=== PATIENT | female | born 1995 | race Caucasian/White ===

== ENCOUNTER 2021-07-04 17:48 | Emergency (ER) | payer OTHER, SELFPAY ==
--- NOTE | ~2021-07-04 | US_ITS ---
EXAMINATION: US OB <=14 wk fetus w TV DATE: 07/04/2021 21:32 INDICATION: Pelvic pain and vaginal bleeding. TECHNIQUE: Real-time pelvic ultrasound utilizing both a transvaginal and transabdominal probe was pe rformed. The interpreting radiologist was not present for the study. COMPARISON: None. FINDINGS: The uterus measures 8.7 x 5.0 x 4.7 cm. There is an intrauterine gestational sac. A yolk sac and fet al pole are identified. The crown rump length measures 1.4 cm, which correlates with an estimated ges tational age of 7 weeks and 5 days. There is no discernible heart motion by other cine grayscal e imaging or M-mode Doppler. The left ovary is not visualized. There is a 8.1 x 7.6 x 7.2 cm complex mixed solid and cystic mass i n the right adnexal region. Portions of the solid component are very echogenic with posterior dirty s hadowing and there are numerous thin linear echogenic foci within the cystic appearing region. Appear ance is most suggestive of a fat, fluid and hair containing dermoid. What may be the adjacent right o vary measures 3.3 x 2.1 x 1.7 cm. There is no free fluid in the pelvis. IMPRESSION: 1. Single intrauterine gestational sac with 1.4 cm pole without heart motion consistent w ith demise. 2. Gestational age by ultrasound of 7 weeks 5 day(s) +/- 5 day(s) which would correspond with an ult rasound estimated date of delivery ([facility]) of 02/15/2022. 3. 8.1 cm complex solid and cystic right adnexal mass with appearance most consistent with a large de rmoid. Reviewed, dictated and finalized at location A. IMPRESSION: 1. Single intrauterine gestational sac with 1.4 cm pole without hea rt motion consistent with demise. 2. Gestational age by ultrasound of 7 weeks 5 day(s) +/- 5 day(s) which would correspond with an ultrasound estimated date of delivery ([facility]) of 02/15/2022. 3. 8.1 cm complex solid and cystic right adnexal mass with appearance most cons istent with a large dermoid.
[2021-07-04 18:24] VITALS: BP 139/65; PULSE 93; RESP 16; TEMP 37.2; O2SAT 100
[2021-07-04 18:41] LABS: Basophils Absolute Auto 0.1 K/mm3 (0.0-0.1); Basophils Percent Auto 0.4 % (0.2-1.2); Eosinophils Absolute Auto 0.2 K/mm3 (0-0.3); Eosinophils Percent Auto 1.5 % (0-4.4); Hematocrit 39.5 % (37.0-47.0); Immature Granulocyte Absolute 0.05 K/mm3 (0.00-0.031); Immature Granulocyte Percent A 0.4 % (0-0.5); Lymphocytes Absolute Auto 3.01 K/mm3 (0.9-3.2); Lymphocytes Percent Auto 24.3 % (18.3-44.2); Mean Corpuscular HGB Conc 32.9 g/dl (32-36); Mean Corpuscular Hemoglobin 28.4 pg (26-34); Mean Corpuscular Volume 86.2 fl (80-100); Mean Platelet Volume 10.1 fl (7.4-10.4); Monocytes Absolute Auto 1.3 K/mm3 (0.1-0.6); Monocytes Percent Auto 10.1 % (2.6-8.5); Neutrophils Absolute Auto 7.9 K/mm3 (1.3-6.7); Neutrophils Percent Auto 63.3 % (45.5-73.1); Platelet Count Result 315 k/mm3 (150-375); Red Blood Count 4.58 M/mm3 (4.2-5.4); White Blood Count 12.4 K/mm3 (4.5-10.0)
[2021-07-04 19:34] VITALS: BP 128/75; PULSE 95; RESP 16; O2SAT 99
--- NOTE | 2021-07-04 19:38 | ED.FEMALEGU ---
HPI - Female Genitourinary General Chief complaint: Vaginal Bleeding Stated complaint: bleeding, 12 weeks Time Seen by Provider: 07/04/21 19:24 Source: patient History of Present Illness HPI Narrative: Patient presents with vaginal bleeding and pelvic cramping. Patient is G1, P0 approximately the 12 weeks by LMP. She saw her OB a couple days ago and things were going well today she pelvic cramping and was passing blood. She reports she was scared she is having a miscarriage and came to the ER for evaluation. She denies any nausea vomiting denies any lightheadedness or dizziness denies any vaginal itching or irritation Related Data Home Medications Medication Instructions Recorded Confirmed prenat.vits,yumiko,[id number] 1 tablet PO DAILY 07/02/21 07/02/21 Allergies Allergy/AdvReac Type Severity Reaction Status Date / Time No Known Allergies Allergy Mild Unverified 07/02/21 10:07 Review of Systems Review of Systems: CONSTITUTIONAL: Denies fever, chills, or sweats. EYES: Denies visual changes, redness, or discharge. ENT: Denies rhinorrhea, congestion, sore throat, or otalgia. CARDIOVASCULAR: Denies chest pain, palpitations, or edema. RESPIRATORY: Denies cough or dyspnea. GASTROINTESTINAL: Denies nausea, vomiting, or diarrhea. GENITOURINARY: Denies dysuria or hematuria. SKIN: Denies rash or itching. MUSCULOSKELETAL: Denies back pain, joint pain, or myalgia. NEUROLOGIC: Denies headache, numbness, dizziness, or weakness. PSYCHIATRIC: Denies anxiety or depression. 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 HEAD: Normocephalic, atraumatic. EYES: PERRLA and EOMI. ENT: Nares clear, no rhinorrhea or epistaxis. Mucous membranes moist. NECK: Supple. No masses. No JVD ABDOMEN: Minimal pain with deep palpation in the lower abdomen soft, nondistended, normal active bowel sounds. EXTREMITIES: Normal range of motion. No edema. SKIN: Warm, dry, no rash. NEURO: No focal deficits. Alert and oriented x3. PSYCH: Normal mood and affect. Course Reevaluation(s) Reevaluation #1: Patient resting comfortably imaging was reviewed with patient she was appropriately upset patient is comfortable continuing outpatient management. Date: 07/05/21 Time: 00:43 Vital Signs Vital signs: Vital Signs Temperature 37.2 C 07/04/21 18:24 Pulse Rate 93 07/04/21 18:24 Respiratory Rate 16 07/04/21 18:24 Blood Pressure 139/65 07/04/21 18:24 Pulse Oximetry 100 07/04/21 18:24 Temperature 37.2 C 07/04/21 18:24 Pulse Rate 99 07/05/21 00:11 Respiratory Rate 18 07/05/21 00:11 Blood Pressure 112/67 07/05/21 00:11 Pulse Oximetry 100 07/05/21 00:11 MDM - Female Genitourinary MDM Narrative Medical decision making narrative: H&P as above, vss, pt looks clinically well, exam with lower abdominal pain, labs with elevated hCG patient blood type is a positive, img without a heart rate concerning for demise, additional labs/img considered, symptomatic relief available as needed, on reevaluation pt continues to looks clinically well. Suspect inco
[2021-07-04 20:53] VITALS: BP 110/63; PULSE 88; RESP 14; O2SAT 100
[2021-07-04 21:59] LABS: Add Urine Microscopic? YES; Appearance Urine Cloudy (Clear); Bilirubin Urine Negative (Negative); Blood Urine 3+ (Negative); Calcium Oxalate Crystals Urine Many /hpf; Color Urine Yellow (Yellow); Glucose Urine UA Negative (Negative); Ketones Urine Negative (Negative); Leukocyte Esterase Ur Negative LEU/UL (Negative); Nitrate Urine Negative (Negative); Protein Urine 1+ mg/dL (Negative); RBC Urine >75 /hpf (0-2); Specific Grav Ur 1.021 (1.001-1.035); Squamous Epithelial Cell Urine Moderate /hpf (Few); Urobilinogen Urine Negative mg/dL (<2.0); WBC Urine 0-3 /hpf
[2021-07-04 22:13] LABS: Alanine Aminotransferase 20 U/L (4-35); Albumin Level 3.8 g/dL (3.5-5.1); Alkaline Phosphatase 75 U/L (38-126); Anion Gap 7 mmol/L (8-16); Aspartate Amino Transferase 25 U/L (14-36); Bilirubin,Total 0.5 mg/dL (0.2-1.3); Blood Urea Nitrogen 11 mg/dL (7-17); Calcium 8.5 mg/dL (8.4-10.2); Carbon Dioxide 23 mmol/L (22-30); Chloride 105 mmol/L (98-107); Estimated CRCL calculation 242 ml/min; Estimated Glomerular Filt Rate > 60; Glucose 101 mg/dL (65-110); Potassium 3.4 mmol/L (3.4-5.0); Sodium 135 mmol/L (137-145)
--- NOTE | 2021-07-04 23:31 | PC.NURSE ---
heart rate was 190. Patient is tearful but very happy at this time.
[2021-07-05 00:11] VITALS: BP 112/67; PULSE 99; RESP 18; O2SAT 100
== END 2021-07-05 00:53 | disposition home or self-care (01) ==
PROVIDERS: Emergency Medicine; Emergency Provider Emergency Medicine
DX: O03.4 Incomplete spontaneous abortion without complication (principal)
CPT/HCPCS: 36415; 76801; 76817; 80053; 81001; 84702; 85025; 85461; 99284

== ENCOUNTER 2021-07-07 16:56 | Outpatient (CLI) | payer OTHER, SELFPAY ==
[2021-07-07 17:16] LABS: Basophils Absolute Auto 0.1 K/mm3 (0.0-0.1); Basophils Percent Auto 0.5 % (0.2-1.2); Eosinophils Absolute Auto 0.2 K/mm3 (0-0.3); Eosinophils Percent Auto 1.2 % (0-4.4); Hematocrit 40.7 % (37.0-47.0); Hemoglobin 13.2 g/dL (12.0-15.0); Immature Granulocyte Absolute 0.04 K/mm3 (0.00-0.031); Immature Granulocyte Percent A 0.3 % (0-0.5); Lymphocytes Absolute Auto 2.72 K/mm3 (0.9-3.2); Lymphocytes Percent Auto 21.2 % (18.3-44.2); Mean Corpuscular HGB Conc 32.4 g/dl (32-36); Mean Corpuscular Hemoglobin 28.3 pg (26-34); Mean Corpuscular Volume 87.3 fl (80-100); Monocytes Absolute Auto 1.1 K/mm3 (0.1-0.6); Monocytes Percent Auto 8.6 % (2.6-8.5); Neutrophils Absolute Auto 8.8 K/mm3 (1.3-6.7); Neutrophils Percent Auto 68.2 % (45.5-73.1); Platelet Count Result 315 k/mm3 (150-375); Red Blood Count 4.66 M/mm3 (4.2-5.4); Red Cell Distribution Width 13.2 % (11.5-14.5); White Blood Count 12.9 K/mm3 (4.5-10.0)
[2021-07-07 17:34] LABS: Hemoglobin A1C 5.3 % (<5.7)
== END 2021-07-07 16:57 | disposition home or self-care (01) ==
LOC: ANHLAB 16:58
PROVIDERS: Visit Provider Obstetrics & Gynecology
DX: O03.4 Incomplete spontaneous abortion without complication (principal); E66.01 Morbid (severe) obesity due to excess calories; Z86.39 Personal history of other endocrine, nutritional and metabolic disease
CPT/HCPCS: 36415; 83036; 84702; 85025

== ENCOUNTER 2021-07-08 14:27 | Outpatient (CLI) | payer OTHER, SELFPAY ==
--- NOTE | ~2021-07-08 | US_ITS ---
EXAMINATION: US OB <= 14 weeks fetus DATE: 07/08/2021 15:40 INDICATION: Incomplete spontaneous TECHNIQUE: Real-time pelvic transabdominal and transvaginal ultrasound was performed. COMPARISON: 07/04/2021 FINDINGS: The uterus measures 9.5 x 4.0 x 6.1 cm. There is an approximately 3.1 x 1.0 cm fluid collec tion in the endometrial canal. No visible pole is identified. The right ovary measures 3.6 x 2. 1 x 2.7 cm. The left ovary is not well visualized. There is a 10.4 x 7.4 x 8.4 cm mixed echogenicity mass of the left adnexa. There is normal vascular flow in the right ovary. There is no free fluid in the pelvis. IMPRESSION: 1. Small fluid collection in the endometrial canal without visible pole, likely retained produc ts of conception. 2. Left adnexal mass measuring up to 10.4 cm with sonographic features of the dermoid. Consider surgi yumiko evaluation. Reviewed, dictated and finalized at location A. IMPRESSION: 1. Small fluid collection in the endometrial canal without visible pole, likely retained products of conception. 2. Left adnexal mass measuring up to 10.4 cm with sonographic features of the d ermoid. Consider surgical evaluation.
== END 2021-07-08 14:28 | disposition home or self-care (01) ==
PROVIDERS: Visit Provider Obstetrics & Gynecology
DX: O03.4 Incomplete spontaneous abortion without complication (principal); Z3A.00 Weeks of gestation of pregnancy not specified; N88.9 Noninflammatory disorder of cervix uteri, unspecified
CPT/HCPCS: 76801

== ENCOUNTER 2021-07-21 10:11 | Outpatient (CLI) | payer OTHER, SELFPAY ==
--- NOTE | ~2021-07-21 | US_ITS ---
EXAMINATION: US pelvic complete w TV DATE: 07/21/2021 10:40 INDICATION: Incomplete spontaneous without complication. TECHNIQUE: Multiple transabdominal and transvaginal sonographic images of the pelvis were obtained. COMPARISON: Ultrasound 07/08/2021, 07/04/2021 FINDINGS: TRANSABDOMINAL ULTRASOUND: The uterus measures 7.5 x 3.4 x 5.9 cm. There is no free fluid in the pelvis. TRANSVAGINAL ULTRASOUND: The endometrial complex measures 11 mm in thickness. There is no vascular flow in the endometrial com plex. There is a 7.5 x 3.4 x 5.9 cm mass of heterogeneous echogenicity in the right adnexa. The left ovary is not visualized. IMPRESSION: 1. Endometrial complex thickness of 11 mm, which is indeterminate for retained products of conception . 2. 7.5 cm mass in the right adnexa, most likely a dermoid. Reviewed, dictated and finalized at location B. IMPRESSION: 1. Endometrial complex thickness of 11 mm, which is indeterminate for retained products of conception. 2. 7.5 cm mass in the right adnexa, most likely a dermoid.
== END 2021-07-21 10:12 ==
LOC: MICIMG 10:12
PROVIDERS: PCP Obstetrics & Gynecology; Visit Provider Obstetrics & Gynecology
DX: O03.4 Incomplete spontaneous abortion without complication (principal); R19.00 Intra-abdominal and pelvic swelling, mass and lump, unspecified site
CPT/HCPCS: 76830; 76856

== ENCOUNTER 2021-08-12 10:48 | Outpatient (CLI) | payer OTHER, SELFPAY ==
[2021-08-12 11:49] LABS: Beta HCG Quantitative < 2.39 mIU/ML
== END 2021-08-12 10:49 | disposition home or self-care (01) ==
LOC: ANHLAB 10:50
PROVIDERS: Visit Provider Obstetrics & Gynecology
DX: O03.4 Incomplete spontaneous abortion without complication (principal)
CPT/HCPCS: 36415; 84702

== ENCOUNTER 2021-09-15 00:52 | Day surgery (SDC) | payer OTHER, SELFPAY ==
--- NOTE | 2021-09-09 13:22 | PC.NURSE ---
Report to the Outpatient Waiting Room, entrance under the green pavilion located off [facility], at 0600 on 09-15-21. OR Time: 0730. - You and your visitor will be asked a series of questions to screen for COVID 19 for your protection. - Only one visitor is allowed at this time. - The patient visitor is requested to leave or wait in car when not with patient. - A mask is required within the hospital. Patients may have clear liquids (water, carbonated beverages, clear teas, apple juice) until 3 hours prior to surgery with a maximum of 20 ounces. 0430 - No food from midnight until time of surgery - Infants may have breast milk until 4 hours before surgery, infant formula 6 hours prior to surgery. - Children will be allowed to drink immediately following surgery. If applicable, please bring a bottle or sippy cup to assist with drinking. Juice, water, soda, and popsicles are readily available. For infants on formula, please bring formula the day of surgery. Pacifiers are allowed. Take the following medications with a SIP of water the morning of surgery: None Medications to discontinue per physician: Vitamins and supplements Date to take last dose: 09-12-21 Please no make-up, nail moroccan, hairspray, perfume, deodorant, or body powder the day of surgery. No jewelry (including any body piercings) or valuables the day of surgery, leave them at home. Please take a shower or bath the night before, or the morning of, surgery with an antibacterial soap. Wear comfortable, loose fitting clothing. Children are encouraged to wear pajamas. - Jewelry must be removed prior to entering the operating room. Rings and piercings that are not removed may be cut off. - The hospital will not accept responsibility for valuables. - Please leave all valuables, including medications, at home the day of surgery. If you are going home after surgery, a licensed front loader residential driver must drive you home. - NO public transportation without another adult. - We recommend that an adult stay with you for 24 hours following discharge. - We also recommend that you do not drive, make important decision, drink alcoholic beverages, or take any drugs that were not prescribed by your health care provider for at least 24 hours after your discharge time. For Pediatric surgeries, we recommend two adults accompany the child home (only one inside the building at this time). Follow any additional instructions given to you from your surgeon. If you or anyone in your household have experienced Covid symptoms in the past week, please notify your surgeon or the nurse liaison at the phone number below for possible testing. Telephone instructions given to Jennie Bee and asked if any additional questions and then verbalized understanding. Patient advised to call surgeon office or pre surgery nurse liaison [phone] if any additional questions.
--- NOTE | 2021-09-14 20:52 | PM.IMHP ---
H&P: HPI History of Present Illness Date/Time: 09/14/21 20:52 Chief Complaint: ovarian cyst Narrative: Jennie is a 26yo P0010 who presents for surgery due to a large ovarian cyst. She recently had a miscarriage and when US was performed, was incidentally found to have a large right sided dermoid cyst. She did continue to bleed for 3wks after the miscarriage; but has not had any further bleeding and beta did verify complete . She denies any pelvic pain; ready to proceed with surgery for her right dermoid ovarian cyst (~8cm). 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 identity (if verbalized by the patient): Female Sexual Orientation (if Verbalized by the Patient): Straight or Heterosexual Spiritual care concerns: No Meds Home Medications and Allergies Home Medications Medication Instructions Recorded Confirmed Type multivit with minerals-iron 18 1 tablet PO DAILY 09/09/21 09/09/21 History mg-folic ac 400 mcg-vit K 25 mcg tablet (Adults Multivitamin) Allergies Allergy/AdvReac Type Severity Reaction Status Date / Time No Known Allergies Allergy Mild Verified 09/09/21 12:57 Exam Const: General: cooperative, comfortable and no acute distress Nutritional Appearance: obese morbidly obese Orientation/consciousness: patient oriented x3 Resp: Effort & Inspection: normal respiratory effort Cardio: Rate: regular rate GI: Inspection: normal to inspection GI Palp: No abdominal tenderness and Yes Soft to palpation Skin: General skin exam: normal color Extrem: General: normal to inspection Psych: Appearance: grossly normal Affect: normal affect Attitude: cooperative Assessment and Plan Assessment and plan (1) Dermoid cyst: Code(s): D36.9 - Benign neoplasm, unspecified site Status: Acute Assessment and Plan: - Right ovarian cyst measuring ~8cm - Proceed with robotic assisted right ovarian cystectomy - Risks and benefits discussed in detail including the possible small risk of oophorectomy
[2021-09-15] VITALS (7 sets, daily range): BP systolic 103–140; BP diastolic 59–69; PULSE 68–98; RESP 15–20; TEMP 36.5–37.1; O2SAT 100; BMI 59.8
--- NOTE | 2021-09-15 07:02 | WPDHPUPDATE1 ---
History and Physical Update Update Date/Time: 09/15/21 07:02 History and Physical has been reviewed, including an updated exam of the patient. There are NO changes in the patient's condition. Risks, benefits, and alternatives have been discussed and questions answered. Patient agrees to proceed with procedure.
--- NOTE | 2021-09-15 07:05 | WPDANESEPPF ---
Anes - Initial Pre Proc Eval Procedure: Operation Date: 09/15/21 07:30 Proposed Procedures p Robotic Assisted Laparoscopic Right Ovarian Cystectomy - Sugar Padilla MD Date/Time: 09/15/21 07:05 Surgeon: Sugar Padilla MD Pre Op Diagnosis: right dermoid cyst Patient Data Age: 26 Gender: F Height: Weight: Allergies Allergy/AdvReac Type Severity Reaction Status Date / Time No Known Allergies Allergy Mild Verified 09/15/21 06:51 Home Medications Medication Instructions Recorded Confirmed Type multivit with minerals-iron 18 1 tablet PO DAILY 09/09/21 09/15/21 History mg-folic ac 400 mcg-vit K 25 mcg tablet (Adults Multivitamin) Patient hx anesthesia problems: none Family hx anesthesia problems: none Results Review: All pre-operative results and documents have been reviewed as part of the pre-operative evaluation. 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 Informed Consent: The patient's anesthetic plan and its attendant risks and benefits were discussed with the patient/family/POA. Questions were solicited and answers provided to the satisfaction of the patient/family/POA.
[2021-09-15] MEDS: ACETAMINOPHEN 500 MG TABLET 1000 MG PO (07:13)
[2021-09-15] MEDS: LACTATED RINGERS 1,000 ML 30 ML IV CONT ×2 (07:20→10:00)
[2021-09-15] MEDS: KETOROLAC 15 MG/ML VIAL (*BKC) IV PUSH (07:26)
[2021-09-15] MEDS: LIDOCAINE/EPINEPHRINE 0.5%/1:200,000 50 ML VIAL 30 ML INFILTRATE (08:52)
--- NOTE | 2021-09-15 09:52 | W.PM.PROC2 ---
Procedure Note - Detailed Date of Procedure 09/15/21 Pre-op Diagnosis right dermoid cyst Post-op Diagnosis Other (Left dermoid cyst) Procedure Performed Robotic assisted left ovarian cystectomy Surgeon Sugar Padilla MD Flight Operations Dispatch Clerk Lencho Anesthesia General Indications Jennie is a 26yo P0010 who presented to the ER with a miscarriage and US incidentally also found an 8cm dermoid ovarian cyst. She was counseled on the need for removal due to it's size. Findings Large ovarian cyst (dermoid) noted to be arising from the left ovary. Normal right ovary, tube and uterus. Cyst accidentally ruptured intra-op where hair and sebaceous fluid noted; diagnosing a dermoid. Good hemostasis at end of case. Description of Procedure Jennie was taken to the operating room where she was placed under general endotracheal anesthesia without complications. She was then prepped and draped in the usual sterile fashion in the dorsal lithotomy position with her arms tucked at her side her legs in low José Miguel stirrups. A tilt test was performed prior to prepping and verified she could handle 22? of Trendelenburg and still be ventilated. A time-out was performed and no preoperative antibiotics were indicated. A bivalve speculum was placed within the vagina where the cervix was easily identified. The anterior lip of the cervix was grasped with a single-tooth tenaculum. The cervix was then serially dilated to allow for the uterine manipulator. A ZUMI diagnostic uterine manipulator was placed without complications as well as a Tarango catheter under aseptic technique. My gloves were changed and my attention was turned the abdomen. A supraumbilical incision was made and a long 5 mm trocar was placed under direct visualization without complication. Once intra-abdominal placement was confirmed the abdomen was insufflated with carbon dioxide gas. Two additional ports were placed on each side, to total 5 ports. The 5 mm trocar was then upsized to the long DaVinci camera port. The patient was placed in 22? of Trendelenburg and the robot was docked without complications. On abdominal survey it was noted that the large cyst was actually arising from the left ovary, not the right. I had discussed this with the patient that this may be the finding but we would proceed with removal of the cyst. Using the Pro grasp the left ovary was elevated. The cyst was scored using the monopolar scissors and using traction counter traction the cyst wall was starting to be removed from the ovary. Little bleeders were noted and were cauterized. Shortly after that cyst contents were noted to be leaking from the cyst as there was a small hole in the cyst wall. Using suction most of the cyst contents were suctioned out of the cyst before entering into the abdomen, at this point we noticed hair and determined it was a dermoid cyst. Using traction counter traction the cyst was slowly peeled off of the ovarian wall and small bleeders were cauterized. The cyst was more adhered at the base, therefore I used monopolar cautery to cut the cyst from the ovary. The cyst was examined and noted to be removed in whole. The cyst was placed in the anterior cul-de-sac while the ovary was then irrigated and small bleeders were cauterized; paying close attention not to over cauterize as she does desire future fertility. A 10 mm bag was then placed within the abdomen and the cyst was placed within the bag. The pelvis was thoroughly irrigated and suctioned free of all debris. At the end, the fluid was noted to be clear without any cyst contents or debris. The ovary was once again examined and found to be hemostatic. The right ovary and uterus were also found to be normal. All instruments were removed from the abdomen. The robot was undocked. The bag was brought up through the supraumbilical port. The incision was extended superiorly and inferiorly. The bag was brought up to the skin incision and grasped with 2 Dilcia clamps. The
[2021-09-15] MEDS: oxyCODONE HCL (*CRX) 5 MG TAB IR PO (11:07)
== END 2021-09-15 12:15 | disposition home or self-care (01) ==
PROVIDERS: Visit Provider Obstetrics & Gynecology
PROC: 8E0W4CZ Robotic Assisted Procedure of Trunk Region, Percutaneous Endoscopic Approach (ICD-10-PCS; CPT 49320; principal; 2021-09-15 07:30)
DX: D27.1 Benign neoplasm of left ovary (principal)
CPT/HCPCS: 58662; 36415; 86850; 86900; 86901; 88305; A9270; J0330; J1100; J1170; J1885; J2250; J2405; J2704; J2710; J3010; J7030; J7120

== ENCOUNTER 2022-08-20 17:42 | Emergency (ER) | payer OTHER, SELFPAY ==
--- NOTE | 2022-08-20 17:45 | ED.DENTAL ---
HPI - Dental/Oral General Chief complaint: Dental/Oral Stated complaint: Dental Pain Time Seen by Provider: 08/20/22 17:45 Source: patient Mode of arrival: ambulatory Limitations: no limitations History of Present Illness HPI Narrative: Patient is a 27-year-old female who presents with left bottom wisdom tooth pain. Patient has temporary crown on to due to nerve being exposed and states every time she bites it sends shooting pain into the ear. Patient reports pain is worsened since last night. Has not been able to eat due to pain. Has taken ibuprofen with only mild relief. Does not have dentist at this time. Reports subjective fever but did not take temperature. Denies any bitter taste in mouth or difficulty swallowing Related Data Allergies Allergy/AdvReac Type Severity Reaction Status Date / Time No Known Allergies Allergy Mild Verified 08/20/22 17:44 Review of Systems Review of Systems: All systems reviewed & are unremarkable except as noted in HPI and below Constitutional: Constitutional: Denies body ache(s), Denies fever(s), Denies headache(s), Denies malaise and Denies weakness Eyes: Eyes: Denies loss of vision ENT: Denies otalgia, Reports facial pain (jaw), Denies headache(s), Denies nasal discharge, Denies sinus pain and Denies sore throat Cardiovascular: Cardiovascular: Denies chest pain, Denies irregular heart rhythm and Denies dyspnea Respiratory: Respiratory: Denies dyspnea Gastrointestinal: Gastrointestinal: Denies abdominal pain, Denies melena, Denies hematochezia, Denies diarrhea, Denies nausea and Denies vomiting Musculoskeletal: Musculoskeletal: Denies back pain, Denies myalgias and Denies arthralgias Integumentary/Breasts: Skin/Breast: Denies pruritus and Denies rash Neurologic: Denies headache(s), Denies loss of vision and Denies weakness Psychiatric: Psychiatric: Reports no additional psychiatric complaints PMF Past Medical History Medical History Irregular periods Suppression of menses Surgical History Surgical History History of tonsillectomy Family History Family History Grandparent Diabetes mellitus Social History Social History Smoking status: Never smoker Second hand tobacco smoke exposure: No Alcohol intake: current Alcohol use details: socially Substance use: current Substance use type: marijuana Living arrangements: with family Occupation/Education: occupation 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 There is no relevant family history pertinent to the presenting complaint. Exam Const: General: cooperative, healthy appearing, comfortable, no acute distress and well nourished Nutritional Appearance: well nourished Orientation/consciousness: patient oriented x3 Limitations: no limitations HENMT: Head: normal to inspection, normocephalic and atraumatic Ears: hearing grossly normal bilaterally, external ears normal, TM's normal bilaterally and mastoids normal bilaterally Face/Nose/Sinus: Normal external nose present, normal facial exam and face symmetric Face and sinus: normal facial exam and face symmetric Mouth: Yes Normal oral and palatal mucosa present, Yes lip normal, Yes tongue normal, Yes Normal salivary glands and ducts present and Yes moist mucous membranes Teeth and gingiva: caries and fair dentition Teeth image: 1. Temporary crown. Surrounding gum inflamed. No drainage noted or obvious break in tooth Throat: posterior oropharynx normal, tons
[2022-08-20 17:54] VITALS: BP 125/71; PULSE 102; RESP 16; TEMP 36.4; O2SAT 100
[2022-08-20] MEDS: ONDANSETRON HCL ODT 4 MG TABLET SUBLINGUAL (18:24)
[2022-08-20] MEDS: KETOROLAC (*BKC) 60 MG/2 ML VIAL IM (18:24)
== END 2022-08-20 18:40 | disposition home or self-care (01) ==
PROVIDERS: Emergency Provider Nurse Practitioner Family; PCP Registered Nurse
DX: K04.7 Periapical abscess without sinus (principal); F12.90 Cannabis use, unspecified, uncomplicated
CPT/HCPCS: 96372; 99213; A9270; G0463; J1885

== ENCOUNTER 2024-09-25 16:52 | Emergency (ER) | payer OTHER, SELFPAY ==
--- NOTE | 2024-09-25 16:59 | ED_ITS ---
HPI - URI/Sore Throat General Chief Complaint: Upper Respiratory Infection Stated Complaint: Dizziness/Flu Symptoms Time Seen by Provider: 09/25/24 17:04 Source: patient Mode of arrival: ambulatory Limitations: no limitations History of Present Illness HPI Narrative: Jennie is a 29-year-old female patient presenting to the clinic today with complaints of dizziness, cough, nasal/sinus congestion, feeling feverish, chills, and diarrhea x4 days. Initially had sore throat that resolved. Has not been able to check her temperature. 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 Cough feels productive but she is not able to get anything out. No one else is sick around her. Took a tincture tea yesterday to try to break up the phlegm. Stated right ear started draining today. Related Data Home Medications ?Medication ?Instructions ?Recorded ?Confirmed ?Last Taken ?Type No Home Medications 09/25/24 09/25/24 Unknown History Allergies Allergy/AdvReac Type Severity Reaction Status Date / Time No Known Allergies Allergy Mild Verified 09/25/24 17:09 Review of Systems Review of Systems: Pertinent positives per HPI. Patient denies any fever, chills, rash, headache, visual changes, dizziness, cough, shortness of breath, chest pain, palpitations, nausea, vomiting, diarrhea, constipation, abdominal pain, or any urinary issues. 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 There is no relevant family history pertinent to the patient complaint. Exam Narrative: General: Well-developed, morbidly obese, in no apparent distress Head: Normocephalic, atraumatic Eyes: Pupils equally round and reactive to light bilaterally, EOM intact, sclera and conjunctive clear, no discharge, lids normal Ears: Left TM intact and clear, Right TM intact, bulging, fluid noted behind the TM, ear canals clear, no drainage, grossly hearing normal. Nose: Nares patent, clear nasal discharge, no inflammation, no sinus tenderness. Mouth: Oral pharynx red without lesions or masses, good dentition, MMM. PMD Neck: Supple, trachea midline, no enlargement of anterior or posterior cervical nodes, no thyroid masses or goiter palpable. Cardio: Regular rate and rhythm, s1 and s2 normal, no murmur appreciated. Resp: Clear to auscultation bilaterally, no rhonchi, rales, wheezing or rubs Course Course Emergency Course: Portions of this record may have been created with voice recognition software. Level of Care: Express Care Visit Vital Signs Vital signs: Vital Signs Temperature 37.3 C 09/25/24 17:08 Pulse Rate 89 09/25/24 17:08 Respiratory Rate 16 09/25/24 17:08 Blood Pressure 142/81 H 09/25/24 17:08 Pulse Oximetry 97 09/25/24 17:08 Oxygen Delivery Room Air 09/25/24 17:08 Temperature 37.3 C 09/25/24 17:08 Pulse Rate 89 09/25/24 17:08 Respiratory Rate 16 09/25/24 17:08 Blood Pressure 142/81 H 09/25/24 17:08 Pulse Oximetry 97 09/25/24 17:08 Oxygen Delivery Room Air 09/25/24 17:08 Vital signs reviewed MDM - URI/Sore Throat MDM Narrative Medical decision making narrative: At the time of visit patient is resting comfortably on the exam table. Patient appears to be nontoxic. Patient is reporting feeling feverish, dizziness, cough, congestion, right ear pain, and some diarrhea. Has not checked her temperature as she does not have a thermometer. Has not taken any medications for her symptoms other than a homemade tincture tea. Denies any chest pain or shortness of breath. Patient reporting that the dizziness has improved. Labs: COVID and influenza testing was negative in the clinic today. Plan: I suspect patient has URI/serous otitis/dizziness. Prescription for prednisone was sent to the pharmacy to help alleviate congestion and dry up the serous otitis. No sign of bacterial infection in the clinic today. Work note was given. Supportive measures were discussed with the patient and they voiced understanding discharge instructions and agrees to treatment plan. Return precautions reviewed Differential Diagnosis Differential diagnosis: Likely upper respiratory infection, otitis media, sinusitis, viral infection, bronchitis, influenza, pharyngitis and other (COVID) Lab Data Labs: Lab Results 09/25/24 Range/Units 17:02 POC Influenza A Ag Negative (Negative) POC Influenza B Ag Negative (Negative) POC SARS CoV-2 Ag Negative (Negative) Discharge Plan Discharge Clinical Impression: Upper respiratory infection, Acute serous otitis media, Dizziness Patient Disposition: Home Condition: Stable Instructions: Antibiotic Form, Upper Respiratory Infection (ED), Dizziness (ED), Fluid In The Ear (Serous Otitis Media) (ED) Additional Instructions: COVID and influenza testing was negative in the clinic today. Take prescription medications only as prescribed-prednisone Increase fluids and stay well hydrated Tylenol/motrin for pain/fever Flonase and OTC antihistamines such as Zyrtec or Claritin as directed Vicks vapor rub to open sinuses Sinus rinses for congestion Cepacol spray, cough drops, throat lozenges, warm tea with honey/lemon, gargle salt water to soothe throat BRAT diet for diarrhea Clear liquids x 24 hours then advance as tolerated for nausea/vomiting Go to the ED if you develop a worsening in your condition- high fever not controlled by Tylenol or Motrin, dehydration, weakness, lethargy, shortness of breath, or chest pain. Follow up with your PCP in 3-5 days if symptoms persist. Patient Language: French Prescriptions: No Action No Home Medications Follow-up/Referrals: PHYSICIAN,SALES PROMOTION DIRECTOR [Primary Care Provider] - Stand Alone Forms: Work/School Release IP Time of Disposition: 17:36 Quality NIHSS Nursing Documentation ED NIHSS nursing documentation: reviewed/agree
[2024-09-25 17:08] VITALS: BP 142/81; PULSE 89; RESP 16; TEMP 37.3; O2SAT 97
[2024-09-25 17:37] LABS: EDCOVIDSCREEN Negative (Negative); EDINFLUASCREEN Negative (Negative); EDINFLUBSCREEN Negative (Negative)
== END 2024-09-25 17:41 | disposition home or self-care (01) ==
PROVIDERS: Emergency Provider Nurse Practitioner Family
DX: J06.9 Acute upper respiratory infection, unspecified (principal); H65.01 Acute serous otitis media, right ear; R42 Dizziness and giddiness; Z20.822 Contact with and (suspected) exposure to COVID-19
CPT/HCPCS: 87426; 87804; 99212; G0463

== ENCOUNTER 2024-10-07 13:31 | Emergency (ER) | payer OTHER, SELFPAY ==
--- NOTE | 2024-10-07 13:37 | ED.GENADULT ---
HPI - General Adult General Chief complaint: Nausea/Vomiting/Diarrhea Stated complaint: Dizziness/Vomiting Time Seen by Provider: 10/07/24 13:37 Source: patient Mode of arrival: ambulatory Limitations: no limitations History of Present Illness HPI narrative: 29-year-old female patient presents to the [facility] with complaints of right ear pain, dizziness and vomiting. Patient states she was seen here a couple weeks ago was diagnosed with URI was not given any medications. Patient states she was told that she has some behind the right ear but was never instructed to take antihistamines or Flonase for the fluid. Patient states that most of her symptoms have resolved but she continues to have right ear pain, and some dizziness. Patient states the dizziness has caused her to vomit at times. Denies fevers body aches or chills. Denies chest pain or shortness of breath. Denies abdominal pain or diarrhea. Patient states she has been taking some scnl-rgw-dhkjccq ear drops to help with her ear pain and his only minimally helped. Related Data Allergies Allergy/AdvReac Type Severity Reaction Status Date / Time No Known Allergies Allergy Mild Verified 10/07/24 14:04 Review of Systems Review of Systems: CONSTITUTIONAL: Denies fever, chills, or sweats. EYES: Denies visual changes, redness, or discharge. ENT: Positive rhinorrhea, congestion, denies sore throat, positive right otalgia. CARDIOVASCULAR: Denies chest pain, palpitations, or edema. RESPIRATORY: Denies cough or dyspnea. GASTROINTESTINAL: Denies abdominal pain, nausea, positive vomiting, denies diarrhea. GENITOURINARY: Denies dysuria or hematuria. SKIN: Denies rash or itching. MUSCULOSKELETAL: Denies back pain, joint pain, or myalgia. NEUROLOGIC: Denies headache, numbness, or weakness. Positive dizziness PSYCHIATRIC: Denies anxiety or depression. 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 There is no relevant family history pertinent to the presenting complaint. Exam Narrative: GENERAL: Well-appearing, well-nourished, and in no acute distress. HEAD: Normocephalic, atraumatic. EYES: PERRLA and EOMI. ENT: Nares clear, no rhinorrhea or epistaxis. Mucous membranes moist. Posterior pharynx with no erythema, tonsillar enlargement, exudates or lesions present. The right TM does have some erythema and pus noted behind the tympanic membrane. There is also some swelling and discharge noted in the canal of the right ear. The left ear does not show any fluid or erythema but it does appear to have something blew near the tympanic membrane most likely an old to that has been scarred over. NECK: Supple. No lymphadenopathy CHEST: Clear to auscultation. No respiratory distress. HEART: Regular rate and rhythm. No murmur heard. Normal peripheral pulses. ABDOMEN: Soft, nontender, nondistended, normal active bowel sounds. EXTREMITIES: Normal range of motion. No edema. SKIN: Warm, dry, no rash. NEURO: No focal deficits. Alert and oriented x3. Course Course Level of Care: Express Care Visit Vital Signs Vital signs: Vital Signs Temperature 36.8 C 10/07/24 13:49 Pulse Rate 81 10/07/24 13:49 Respiratory Rate 20 10/07/24 13:49 Blood Pressure 137/74 10/07/24 13:49 Pulse Oximetry 100 10/07/24 13:49 Oxygen Delivery Room Air 10/07/24 13:49 Temperature 36.8 C 10/07/24 13:49 Pulse Rate 81 10/07/24 13:49 Respiratory Rate 20 10/07/24 13:49 Blood Pressure 137/74 10/07/24 13:49 Pulse Oximetry 100 10/07/24 13:49 Oxygen Delivery Room Air 10/07/24 13:49 Vital signs reviewed. Medical Decision Making MDM Narrative Medical decision making narrative: Discussed with patient that we will discharge her home with some oral antibiotics, as well as an ear drop antibiotic. Discussed with her she also needs to get a wmme-lfi-nqocgkc antihistamine something such as Zyrtec, Claritin or Hyacinth as well as Flonase to help decrease the fluid behind her ear. Discussed with patient that if the antibiotic resolve the infection but she continues to have dizziness she needs to be seen by her primary doctor be seen in the ER for further evaluation. Differential Diagnosis Differential Diagnosis: Differential diagnosis: Otitis media, otitis externa, perforated TM, infection of the outer ear, foreign body or cerumen impaction, ruptured TM, acute mastoiditis, ligament otitis externa, dehydration, pneumonia, sepsis, dental or intraoral infection, TMJ dysfunction Vital Signs Vital Signs: Vital Signs Temperature 36.8 C 10/07/24 13:49 Pulse Rate 81 10/07/24 13:49 Respiratory Rate 20 10/07/24 13:49 Blood Pressure 137/74 10/07/24 13:49 Pulse Oximetry 100 10/07/24 13:49 Oxygen Delivery Room Air 10/07/24 13:49 Temperature 36.8 C 10/07/24 13:49 Pulse Rate 81 10/07/24 13:49 Respiratory Rate 20 10/07/24 13:49 Blood Pressure 137/74 10/07/24 13:49 Pulse Oximetry 100 10/07/24 13:49 Oxygen Delivery Room Air 10/07/24 13:49 Critical Care Time Critical Care Time Critical Care Time: No Discharge Plan Discharge Clinical Impression: Acute right otitis media, Acute otitis externa of right ear Patient Disposition: Home Condition: Stable Instructions: Antibiotic Form, Ear Infection (ED) Additional Instructions: An ear infection is also called otitis media. An ear infection may be caused by blocked or swollen eustachian tubes. Eustachian tubes connect the middle ear to the back of the nose and throat. They drain fluid from the middle ear. With an ear infection, fluid builds up and is infected by germs. The germs grow easily in fluid trapped behind the eardrum. DISCHARGE INSTRUCTIONS: Call 911 or have someone call 911 for the following: You have a seizure. Return to the emergency department if: You have a fever and a stiff neck. Contact your healthcare provider if: Your ear pain gets worse or does not go away, even after treatment. The outside of your ear is red or swollen. You are vomiting or have diarrhea. You have fluid coming from your ear. You have questions or concerns about your condition or care. Medicines: Acetaminophen decreases pain and fever. It is available without a doctor's order. Ask how much to take and how often to take it. Follow directions. Read the labels of all other medicines you are using to see if they also contain acetaminophen, or ask your doctor or pharmacist. Acetaminophen can cause liver damage if not taken correctly. Do not use more than 4 grams (4,000 milligrams) total of acetaminophen in one day. NSAIDs , such as ibuprofen, help decrease swelling, pain, and fever. This medicine is available with or without a doctor's order. NSAIDs can cause stomach bleeding or kidney problems in certain people. If you take blood thinner medicine, always ask your healthcare provider if NSAIDs are safe for you. Always read the medicine label and follow directions. Please use a daily antihistamine something such as Zyrtec, Claritin and Hyacinth as well as huzl-lmi-ewncqve Flonase to help with the fluid behind the ear. For the Flonase to 2 sprays in the morning and 2 sprays in the evening until symptoms have resolved. Antibiotics help treat a bacterial infection that caused your ear infection. Take your medicine as directed. Contact your healthcare provider if you think your medicine is not helping or if you have side effects. Tell him or her if you are allergic to any medicine. Keep a list of the medicines, vitamins, and herbs you take. Include the amounts, and when and why you take them. Bring the list or the pill bottles to follow-up visits. Carry your medicine list with you in case of an emergency. Prevent an ear infection: Wash your hands often. Use soap and water. Wash your hands after you use the bathroom, change a child's diapers, or sneeze. Wash your hands before you prepare or eat food. Handwashing Stay away from people who are ill. Some germs are easily and quickly spread through contact. Patient Language: [place] Prescriptions: New amoxicillin-pot clavulanate 875-125 mg tablet 1 tablet PO Q12H 7 Days Qty: 14 0RF ofloxacin 0.3 % drops 10 drp RIGHT EAR DAILY 7 Days Qty: 10 0RF Follow-up/Referrals: PHYSICIAN,PAID SEARCH MARKETING STRATEGIST [Primary Care Provider] - Time of Disposition: 14:07
[2024-10-07 13:49] VITALS: BP 137/74; PULSE 81; RESP 20; TEMP 36.8; O2SAT 100
== END 2024-10-07 14:20 | disposition home or self-care (01) ==
PROVIDERS: Emergency Provider Nurse Practitioner Family
DX: H66.91 Otitis media, unspecified, right ear (principal); H60.91 Unspecified otitis externa, right ear
CPT/HCPCS: 99213; G0463

== ENCOUNTER 2025-01-21 16:52 | Emergency (ER) | payer OTHER, SELFPAY ==
[2025-01-21 17:00] VITALS: BP 132/55; PULSE 79; RESP 16; TEMP 36.8; O2SAT 100
--- NOTE | 2025-01-21 17:26 | ED_ITS ---
HPI - URI/Sore Throat General Chief Complaint: Upper Respiratory Infection Stated Complaint: Congestions, nauseous, fevers patient presents to the [facility] with complaints of nasal congestion, sinus pain, headaches, fatigue, sore throat, cough that began about 8 days ago. Patient reports intermittently feeling slightly better but then symptoms will start up again. Patient noted symptoms much worse today. Has been using some zxal-zgz-zoegbcb sinus medication with temporary relief of symptoms. No specific known sick contacts. Denies shortness of breath, dizziness, ear pain, difficulty swallowing, nausea, vomiting, diarrhea. Related Data Allergies Allergy/AdvReac Type Severity Reaction Status Date / Time No Known Allergies Allergy Mild Verified 01/21/25 17:21 Review of Systems Constitutional: Constitutional: Reports as per HPI, Reports chills, Reports fatigue, Denies fever(s) and Denies weakness Eyes: Eyes: Reports no additional eye complaints ENT: Reports as per HPI, Denies vertigo, Denies dizziness, Reports nasal congestion and Reports sore throat Comments: Sinus pain, nasal drainage Cardiovascular: Cardiovascular: Reports no additional cardiovascular complaints Respiratory: Respiratory: Reports as per HPI, Reports chest congestion, Reports cough, Denies dyspnea and Denies wheezing Gastrointestinal: Gastrointestinal: Reports as per HPI, Denies abdominal pain, Denies diarrhea, Reports nausea and Denies vomiting Genitourinary: Genitourinary: Reports no additional female genitourinary complaints Musculoskeletal: Musculoskeletal: Reports as per HPI, Denies back pain and Denies myalgias Integumentary/Breasts: Skin/Breast: Reports as per HPI, Denies pruritus, Denies erythema and Denies rash Neurologic: Denies vertigo, Denies dizziness, Reports headache(s) and Denies weakness Psychiatric: Psychiatric: Reports no additional psychiatric complaints Endocrine: Endocrine: Reports no additional endocrine complaints Hematologic/Lymphatic: Hematologic/Lymphatic: Reports no additional hematologic/lymphatic complaints Allergic/Immunologic: Allergic/Immunologic: Reports no additional allergic/immunologic complaints [facility] Past Medical History Medical History Irregular periods Suppression of menses Surgical History Surgical History History of tonsillectomy Family History Family History Grandparent Diabetes mellitus Social History Social History Smoking status: Never smoker Second hand tobacco smoke exposure: No Alcohol intake: current Alcohol use details: socially Substance use: current Substance use type: marijuana Living arrangements: with family Occupation/Education: occupation 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 Gender identity (if verbalized by the patient): Female Sexual Orientation (if Verbalized by the Patient): Straight or Heterosexual Spiritual care concerns: No Exam Const: General: healthy appearing and no acute distress Nutritional Appearance: well nourished Orientation/consciousness: patient oriented x3 Limitations: no limitations HENMT: Head: normal to inspection Ears: external ears normal and TM's normal bilaterally Face/Nose/Sinus: Normal external nose present, nares abnormal ( moderate erythema and edema) and Nasal discharge present Face and sinus: normal facial exam and sinus tenderness maxillary Mouth: Yes Normal oral and palatal mucosa present, Yes lip normal and Yes moist mucous membranes Throat: posterior oropharynx abnormal ( moderate erythema and edema noted no exudate) and uvula midline Neck: Neck: normal visual inspection and no lymphadenopathy Resp: Effort & Inspection: normal respiratory effort Auscultation: clear to auscultation bilaterally Cardio: Rate: regular rate Rhythm: regular rhythm Skin: General skin exam: normal color Rashes: no rashes Wounds: no wounds Neuro: General: patient oriented x3 Speech: normal speech Gait exam (Neuro): Normal gait present Psych: Mental Status: mental status grossly normal Affect: normal affect Attitude: cooperative Course Course Level of Care: Express Care Visit Vital Signs Vital signs: Vital Signs Temperature 98.2 F 01/21/25 17:00 Pulse Rate 79 01/21/25 17:00 Respiratory Rate 16 01/21/25 17:00 Blood Pressure 132/55 L 01/21/25 17:00 Pulse Oximetry 100 01/21/25 17:00 Oxygen Delivery Room Air 01/21/25 17:00 Temperature 98.2 F 01/21/25 17:00 Pulse Rate 79 01/21/25 17:00 Respiratory Rate 16 01/21/25 17:00 Blood Pressure 132/55 L 01/21/25 17:00 Pulse Oximetry 100 01/21/25 17:00 Oxygen Delivery Room Air 01/21/25 17:00 MDM - URI/Sore Throat MDM Narrative Medical decision making narrative: The patient was evaluated by myself in the [facility] care. History is obtained from patient who is an independent historian and physical exam was performed. Available medical records were reviewed at this time. Exam findings show no acute concerns or changes; patient is non-toxic appearing and is in no distress. Patient is appropriate for outpatient treatment and follow-up. I have evaluated and discussed social determinants of health with the patient that could potentially impact subsequent diagnosis and treatment plans. Differential diagnosis and treatment plan were discussed with the patient. Patient agrees with discussion and after shared medical decision making agrees with plan of care. All questions were answered to the patient's satisfaction. Differential Diagnosis Differential diagnosis: Likely upper respiratory infection, croup, otitis media, sinusitis, bronchitis, influenza and pharyngitis Medical Records Attestation: I reviewed the patient's medical records. Discharge Plan Discharge Clinical Impression: Sinusitis Patient Disposition: Home Condition: Stable Instructions: Antibiotic Form, Sinusitis (ED) Additional Instructions: Take the antibiotics as directed for the entire course. Do not miss any doses. What you are taking antibiotics and is recommended to take a probiotic or have yogurt daily to return the good gut bacteria to your system. This can also help with acute diarrhea while taking antibiotics. It can take 24-48 hours for the antibiotics to start to relieve your symptoms continue to take these medications to help with various symptoms: Tylenol or Motrin for pain, headache, or fever Flonase/fluticasone or Nasacort/triamcinolone nasal spray- helps with congestion and nasal drainage. Sudafed/pseudoephedrine helps with sinus pain and congestion. Caution with high blood pressure. Use a humidifier or vaporizer at night. Drink plenty of water. 8-10 glasses per day. Mucinex/guaifenesinas directed and be sure to take with 8oz of water. Warm compresses over the forehead and cheeks to promote sinus drainage. Return to urgent care or go to the ER for new or worsening symptoms. Follow up with Primary provider if not improved after 1 week. Patient Language: Citizen Of [place] Prescriptions: New amoxicillin-pot clavulanate 875-125 mg tablet 1 tablet PO Q12H Qty: 20 0RF Follow-up/Referrals: PHYSICIAN,AUTOMATIC TIRE TESTER [Primary Care Provider, Internal Medicine] Stand Alone Forms: Work/School Release IP Time of Disposition: 17:26
== END 2025-01-21 17:31 | disposition home or self-care (01) ==
PROVIDERS: Emergency Provider Nurse Practitioner Family
DX: J32.9 Chronic sinusitis, unspecified (principal); F12.90 Cannabis use, unspecified, uncomplicated
CPT/HCPCS: 99213; G0463

== ENCOUNTER 2025-02-06 16:57 | Observation (INO) | payer OTHER, SELFPAY ==
[2025-02-06] VITALS (7 sets, daily range): BP systolic 114–147; BP diastolic 62–90; PULSE 108–126; RESP 13–22; TEMP 37.2–37.7; O2SAT 96–100
--- NOTE | ~2025-02-06 | CT_ITS ---
CT abdomen pelvis w con INDICATION:abdominal pain . COMPARISON: None. TECHNIQUE: Axial images of the abdomen and pelvis were obtained following infusion of 100 mL Isovue 300. Dose optimization technique was utilized. FINDINGS: There is a 1.4 cm nodule at the right lung base. The liver parenchyma is unremarkable. No intrahepatic mass or ductal dilatation is evident. The gallbladder is unremarkable. The pancreas and spleen are normal in appearance. The adrenal glands are symmetric in size. The kidneys demonstrate symmetric uptake and excretion of contrast. No cystic mass is evident. There is no solid mass. There is no hydronephrosis. Evaluation of the stomach and bowel loops are limited due to lack of oral contrast. The appendix is normal in appearance. There are no bowel obstructions. The bladder and rectum are normal. No free intraperitoneal fluid or air is evident. There is no significant retroperitoneal lymphadenopathy. The aorta, visceral vessels and renal arteries demonstrate normal caliber and patency. The lower thoracic and lumbar vertebrae are in normal alignment. IMPRESSION: No acute abnormality is noted in the abdomen and pelvis. 1.4 cm nodule at the right lung base could be follow-up with CT in [address] scans at this facility are performed using low dose modulation techniques as appropriate to perform exam including the following: automated exposure control; use of iterative reconstruction technique; adjustment of the mA and/or kV according to patient size (this includes techniques or standardized protocols for targeted exams where dose is matched to indication/reason for exam). Reviewed, dictated and finalized at location S. MEMBER IMPRESSION: No acute abnormality is noted in the abdomen and pelvis. 1.4 cm nodule at the right lung base could be follow-up with CT in [address] scans at this facility are performed using low dose modulation techniqu es as appropriate to perform exam including the following: automated exposure c ontrol; use of iterative reconstruction technique; adjustment of the mA and/or kV according to patient size (this includes techniques or standardized protocol s for targeted exams where dose is matched to indication/reason for exam).
--- NOTE | ~2025-02-06 | CT_ITS ---
CTA chest PE protocol HISTORY:abnormal CXR, tachycardia . COMPARISON: None. TECHNIQUE: Following the noncontrasted rn social work, axial images of the thorax were obtained following infusion of 100 cc of Isovue 370. Post-processing on an independent workstation was performed to reconstruct MIP images for evaluation of the thoracic vasculature. FINDINGS: There is no pulmonary embolism, aortic dissection, thoracic aneurysm or pericardial fluid. Groundglass opacities are present bilaterally. There is a 13 mm nodule within the right lower lobe. No pleural effusion or pneumothorax is noted. There is no axillary, mediastinal or hilar adenopathy. Limited evaluation of the upper abdomen demonstrates no gross abnormalities. Review of bone windows demonstrates no osteoblastic or lytic lesions. IMPRESSION: There is no pulmonary embolism, aortic dissection, pericardial fluid or thoracic aneurysm. Groundglass opacity bilaterally suggestive of pulmonary congestion. There is a 13 mm pulmonary nodule within the right lower lobe. This could be follow-up with CT in [address] scans at this facility are performed using low dose modulation techniques as appropriate to perform exam including the following: automated exposure control; use of iterative reconstruction technique; adjustment of the mA and/or kV according to patient size (this includes techniques or standardized protocols for targeted exams where dose is matched to indication/reason for exam). Reviewed, dictated and finalized at location S. TRUCTION REPRESENTATIVE IMPRESSION: There is no pulmonary embolism, aortic dissection, pericardial fluid or thoraci c aneurysm. Groundglass opacity bilaterally suggestive of pulmonary congestion. There is a 13 mm pulmonary nodule within the right lower lobe. This could be fo llow-up with CT in [address] scans at this facility are performed using low dose modulation techniqu es as appropriate to perform exam including the following: automated exposure c ontrol; use of iterative reconstruction technique; adjustment of the mA and/or kV according to patient size (this includes techniques or standardized protocol s for targeted exams where dose is matched to indication/reason for exam).
--- NOTE | ~2025-02-06 | XR_ITS ---
XR chest 1V portable INDICATION:tachycardia . REFERENCE: None FINDINGS: A single AP of the chest demonstrates normal heart size. Groundglass opacities are present bilaterally. There is no evidence of pneumothorax or pleural effusion. IMPRESSION: Groundglass opacity bilaterally suggestive of pulmonary congestion. Reviewed, dictated and finalized at location S. OLL OFFICER
--- OUTSIDE RECORDS SUMMARY | 2025-02-06 17:07 | XMS_ITS | Clinical Summary ---
Author Organization [facility] / [facility] Address [facility] [place] [address] Care Team Providers Care Oracle Iam Consultant Name Role Phone Venus Rosario Primary Care Provider [phone] None, Provider MD Unavailable Unavailable Allergies No known active allergies Medications multi vitamin/minerals (THERA-M ENHANCED) tablet Take 1 tablet by mouth daily. Active Active Problems Problem Noted Date Diagnosed Date Acquired hypothyroidism 02/04/2022 Morbid obesity with BMI of 60.0-69.9, adult 01/08 Appendicitis 01/13/2022 Immunizations Immunization Administration Dates Next Due Dtap (Acel-Immune) 12/06/2002, 9,1997,07/23,1997 Fluzone 6 Months+ Quad (0.5 mL Prefilled Syringe) 02/04/2022 Hepatitis B Pediatric 1997,1997 Hib (Generic) 10/04/1998,1997,1997 Hib-Hepatitis B (Comvax) 1997 Influenza (Generic) 02/05/2012 Influenza Adult (Generic) 01/08/2015 MMR (MMRII) 10/15/2008,12/06/2002,04/16/1998 Meningococcal (Menactra) 09/27/2014 Pneumococcal (Prevnar 7) 05/17/2000 Polio IPV (Ipol) 12/06/2002,1997, 8 Polio Opv (Generic) 04/16/1998 Tdap (Generic) 10/15/2008 Varicella (Varivax) 04/16/1998 Family History Medical History Relation Comments Hypertension Father arrhythmias Father Heart Attack Maternal Grandfather Heart Attack Maternal Grandmother No Known Problems Mother Cancer Paternal Grandfather leukemia Diabetes Paternal Grandfather Heart Attack Paternal Grandmother Cancer Sister 1 Stromach cancer Relation Status Comments Brother 1 Alive Brother 2 Alive Father Alive Maternal Grandfather Maternal Grandmother Mother Alive Paternal Grandfather Paternal Grandmother Sister 1 Alive Sister 2 Alive Sister 3 Alive Sister 4 Alive Social History Tobacco Use Types Packs/Day Years Used Date Smoking Tobacco: Never Passive Smoke Exposure: Never Smokeless Tobacco: Never Tobacco Cessation:Counseling Given: No Alcohol Use Standard Drinks/Week Comments Yes 0 (1 standard drink = 0.6 oz pur e alcohol) once every few months Comments No Sex and Gender Information Value Date Recorded Sex Assigned at Not on file Legal Sex Female 11:46 PM DIRECT SERVICE PROFESSIONAL Gender Identity Not on file Sexual Orientation Not on file Last Filed Vital Signs Vital Sign Reading Time Taken Comments Blood Pressure 112/75 02/04/2022 11:20 AM DIRECT SERVICE PROFESSIONAL Pulse 71 02/04/2022 11:20 AM DIRECT SERVICE PROFESSIONAL Temperature 36.6 C (97.8 F) 02/04/2022 11:20 AM DIRECT SERVICE PROFESSIONAL Respiratory Rate 12 02/04/2022 11:20 AM DIRECT SERVICE PROFESSIONAL Oxygen Saturation 99% 02/04/2022 11:20 AM DIRECT SERVICE PROFESSIONAL Inhaled Oxygen Concentration - - Weight 151 kg (333 lb) 02/04/2022 11:20 AM DIRECT SERVICE PROFESSIONAL Height 157.5 cm (5' 2) 02/04/2022 11:20 AM DIRECT SERVICE PROFESSIONAL Body Mass Index 60.91 02/04/2022 11:20 AM DIRECT SERVICE PROFESSIONAL Plan of Treatment Health Maintenance Due Date Last Done Comments Cervical Cancer Screening Pap Smear (Age 21 to 29) Every 3 Years 1997 Cervical Cancer Screening 1997 Annual Physical 2000 Hepatitis C 2015 DTaP, Tdap and Td Vaccines (7 - Td or Tdap) 10/15/2018 10/15/2008, 12/06/2002, 10/04/1998, Additional history exists HPV Vaccines (1 - 3-dose SCDM series) 2024 COVID-19 Vaccine ( season) 2024 Influenza Adult (#1) 2024 02/04/2022, 01/08/2015, 02/05/2012 Hepatitis B Vaccines Completed 1997, 1997, 1997 Pneumococcal Vaccine: Pediatrics (0 to 5 Years) and At-Risk Patients (6 to 49 Years) Aged Out 05/17/2000 No longer eligible based on patient's age to complete this topic Meningococcal Vaccine Completed 09/27/2014 Hepatitis A Vaccines Aged Out No long er eligible based on patient's age to complete this topic Meningococcal B Vaccine Aged Out No l onger eligible based on patient's age to complete this topic RSV Immunizations Under 20 Months Aged Out No longer eligible based on patient's age to complete this topic Goals Goal Patient Goal Type Associated Problems Recent Progress Patient-Stated? Author Family - family caregiver with be involved in care transitions and discharge planning Lifestyle No Elly Walton, INDUSTRIAL CUSTODIANfacilities coordinator R Advance Directives * Full Code (Latest Code Status on File) Date Activated Date Inactivated Comments 01/13/2022 2:05 PM 01/14/2022 1:58 PM * Full Code Date Activated Date Inactivated Comments 01/13/2022 2:32 AM 01/13/2022 2:05 PM Care Teams Oracle Iam Consultant Relationship Specialty Start Date End Date Venus Rosario APNP [address] [place] [id number] PCP - General NURSE PRACTITIONER 02/04/22 None, Provider, MD UNKNOWN PHYSICIAN SPECIALTY 02/04/22
--- NOTE | 2025-02-06 19:53 | ECG_ITS ---
Test Date: 2025-02-06 20:40:58 Measurements Intervals Jordan Rate: 111 P: 43 NH: 167 QRS: 66 QRSD: 90 T: 1 QT: 330 QTc: 450 Interpretive Statements SINUS TACHYCARDIA BASELINE ARTIFACT- I, II, III, AVR, AVL, AVF, V1 ABNORMAL ECG No previous ECG available for comparison Electronically Signed On 02-07-2025 06:10:18 PERSONAL LINES INSURANCE ADVISOR by Boris Sneed D.O.
[2025-02-06 19:54] LABS: BEDSIDEPREGUCG Negative (Negative)
--- NOTE | 2025-02-06 19:56 | ED_ITS ---
HPI - Abdominal Pain General Chief Complaint: Abdominal Pain Stated Complaint: Abd pain, nausea wo vomiting Time Seen by Provider: 02/06/25 19:42 Source: patient Mode of arrival: ambulatory Limitations: no limitations History of Present Illness HPI narrative: patient is a 29-year-old female presents to the emergency department complaining of lower abdominal pain and nausea. Notes this started around 5:00 a.m. this morning, constant, diffuse throughout her lower abdomen, denies any history is pain in the past, has not noticed anything making it better worse. Denies vomiting, diarrhea. Admits to feeling generally unwell for the past few days. Unknown she has had any fevers. Denies taking any Tylenol or Motrin today. Admits to dysuria, urinary urgency, urinary frequency. Denies any recent antibiotic use except for about 1 month ago she took amoxicillin, unsure she took it for but describes a upper respiratory process at that time. Notes her menstrual cycles are very irregular and she has PCOS and is unsure as to exactly when her last menstrual period was. Notes that the pain overall feels like a pressure. admits to history of abdominal surgeries including an appendectomy and ovarian cyst removal. Related Data Allergies Allergy/AdvReac Type Severity Reaction Status Date / Time No Known Allergies Allergy Mild Verified 02/06/25 16:57 Review of Systems 2 Review of Systems: A 10 system review of systems was completed on the patient and is negative except for what is stated in the HPI. Nursing and ancillary documentation was reviewed. 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 morbid obesity. HENMT: Head is normocephalic and atraumatic. tacky mucous membranes. No posterior oropharynx erythema. EYES: No scleral icterus. No conjunctival injection or pallor. PERRL. NECK: No meningeal signs. RESP: Able to speak in full sentences. Normal respiratory effort. CTAB. CARDIO: tachycardic rate. Regular rhythm. 2+ DP and radial pulses bilaterally. GI: Nondistended. mild tenderness to palpation diffusely throughout the lower abdomen in addition to the periumbilical region, no rebound or guarding or rigidity. Soft. : No CVA tenderness to palpation. SKIN: No rashes or lesions noted on exposed skin. NEURO: Oriented x3. Moves all extremities. EXTREM/MSK/BACK: No pedal edema. PSYCH: Normal affect. Course Vital Signs Vital signs: Vital Signs Temperature 100 F H 02/06/25 16:59 Pulse Rate 126 H 02/06/25 16:59 Respiratory Rate 19 02/06/25 16:59 Blood Pressure 147/90 H 02/06/25 16:59 Pulse Oximetry 98 02/06/25 16:59 Oxygen Delivery Room Air 02/06/25 16:59 Temperature 98.9 F 02/06/25 19:52 Pulse Rate 108 H 02/06/25 22:46 Respiratory Rate 13 02/06/25 22:46 Blood Pressure 114/72 02/06/25 22:46 Pulse Oximetry 96 02/06/25 22:46 Oxygen Delivery Room Air 02/06/25 16:59 [facility] Narrative Medical decision making narrative: Patient presents with the above complaint. Initial vitals are remarkable for tachycardia, temperature 100? F. Physical examination as noted above. Plan discussed: laboratory analysis, EKG, imaging. Patient ordered IVF 30 cc/kg ideal body weight, blood cultures, Zofran, Toradol, NPO. I spoke with the hospitalist on-call who has accepted the patient for admission. Differential Diagnosis Differential Diagnosis: bowel obstruction, UTI, ureterolithiasis, cholecystitis, hepatobiliary pathology, pancreatitis, enteritis, ovarian cyst, pelvic inflammatory disease, other acute surgical abdominal process. Lab Data [facility] Lab Attestation statement: I personally reviewed the patient's lab results. Lab results narrative: CBC reveals a white blood cell count of 15.9. Coags are within normal limits. Comprehensive metabolic panel reveals a sodium 134. Lipase 65. CRP is 4.3. Troponin is less than 0.012. Magnesium is 1.8. Lactic acid 2.1. Urinalysis has a cloudy appearance with 1+ blood, 1+ leukocyte esterase, 11-20 wbc's, 1+ bacteria. test is negative. COVID and influenza and RSV testing are negative. BNP is less than 20. 02/06/25 19:46 02/06/25 19:46 Labs: Lab Results 02/06/25 02/06/25 02/06/25 Range/Units 19:33 19:46 19:54 WBC 15.9 H (4.5-10.0) K/mm3 RBC 4.86 (4.2-5.4) M/mm3 Hgb 12.8 (12.0-15.0) g/dL Hct 39.5 (37.0-47.0) % MCV 81.3 (80-100) fl MCH 26.3 (26-34) pg MCHC 32.4 (32-36) g/dl RDW 14.5 (11.5-14.5) % Plt Count 353 (150-375) k/mm3 MPV 9.4 (7.4-10.4) fl Immature Gran % (Auto) 0.5 (0-0.5) % Neut % (Auto) 76.7 H (45.5-73.1) % Lymph % (Auto) 13.9 L (18.3-44.2) % [place] % (Auto) 8.5 (2.6-8.5) % Eos % (Auto) 0.2 (0-4.4) % Baso % (Auto) 0.2 (0.2-1.2) % Lymph # (Auto) 2.21 (0.9-3.2) K/mm3 [place] # (Auto) 1.4 H (0.1-0.6) K/mm3 Eos # (Auto) 0.0 (0-0.3) K/mm3 Baso # (Auto) 0.0 (0.0-0.1) K/mm3 Abs Immat Gran (auto) 0.08 H (0.00-0.031) K/mm3 Absolute Neuts (auto) 12.2 H (1.3-6.7) K/mm3 Absolute Nucleated RBC 0.000 (0.0-0.012) K/mm3 Nucleated RBC % 0.0 (0.0-0.2) % PT 14.2 (11.1-14.7) Seconds INR 1.1 APTT 25.6 (22.3-36.8) Seconds Sodium 134 L (137-145) mmol/L Potassium 3.9 (3.4-5.0) mmol/L Chloride 102 (98-107) mmol/L Carbon Dioxide 25 (22-30) mmol/L Anion Gap 7 (4-12) mmol/L BUN 10 (7-17) mg/dL Creatinine 0.60 L (0.7-1.0) mg/dL Estim Creat Clear Calc 204 ml/min Estimated GFR > 60 (59 - ) Glucose 107 (65-110) mg/dL Lactic Acid 2.1 H (0.7-2.0) mmol/L Calcium 9.0 (8.4-10.2) mg/dL Magnesium 1.8 (1.6-2.3) mg/dL Total Bilirubin 1.0 (0.2-1.3) mg/dL AST 19 (14-36) U/L ALT 33 (6-35) U/L Alkaline Phosphatase 105 (38-126) U/L Troponin I < 0.012 (0.000-0.034) ng/mL C-Reactive Protein 4.3 H (<1.0) mg/dL NT-Pro-B Natriuret Pep < 20 (19.9-100) pg/mL Total Protein 8.6 H (6.3-8.2) g/dL Albumin 4.2 (3.5-5.1) g/dL Lipase 65 (23-300) U/L Urine Color Yellow (Yellow) Urine Appearance Cloudy H (Clear) Urine pH 8.0 (5.0-9.0) Ur Specific [place] 1.017 (1.001-1.035) Urine Protein Negative (Negative) mg/dL Urine Glucose (UA) Negative (Negative) mg/dL Urine Ketones Negative (Negative) mg/dL Ur Blood (Man) 1+ H (Negative) Urine Nitrate Negative (Negative) Urine Bilirubin Negative (Negative) Urine Urobilinogen 1.0 (<2.0) mg/dL Leukocyte Esterase Rfl 1+ H (Negative) CARMEL/UL Urine RBC 0-2 (0-2) /hpf Urine WBC 11-20 H (0-3) /hpf Ur Squamous Epith Cells Few (Few) /hpf Urine Bacteria 1+ H /hpf Urine Casts 0-2 POC Urine HCG, Qual Negative (Negative) Influenza A (RT-PCR) Negative (Negative) Influenza B (RT-PCR) Negative (Negative) RSV (RT-PCR) Negative (Negative) SARS-CoV-2 RNA (RT-PCR) Negative (Negative) 02/06/25 Range/Units 22:39 WBC (4.5-10.0) K/mm3 RBC (4.2-5.4) M/mm3 Hgb (12.0-15.0) g/dL Hct (37.0-47.0) % MCV (80-100) fl MCH (26-34) pg MCHC (32-36) g/dl RDW (11.5-14.5) % Plt Count (150-375) k/mm3 MPV (7.4-10.4) fl Immature Gran % (Auto) (0-0.5) % Neut % (Auto) (45.5-73.1) % Lymph % (Auto) (18.3-44.2) % [place] % (Auto) (2.6-8.5) % Eos % (Auto) (0-4.4) % Baso % (Auto) (0.2-1.2) % Lymph # (Auto) (0.9-3.2) K/mm3 [place] # (Auto) (0.1-0.6) K/mm3 Eos # (Auto) (0-0.3) K/mm3 Baso # (Auto) (0.0-0.1) K/mm3 Abs Immat Gran (auto) (0.00-0.031) K/mm3 Absolute Neuts (auto) (1.3-6.7) K/mm3 Absolute Nucleated RBC (0.0-0.012) K/mm3 Nucleated RBC % (0.0-0.2) % PT (11.1-14.7) Seconds INR APTT (22.3-36.8) Seconds Sodium (137-145) mmol/L Potassium (3.4-5.0) mmol/L Chloride (98-107) mmol/L Carbon Dioxide (22-30) mmol/L Anion Gap (4-12) mmol/L BUN (7-17) mg/dL Creatinine (0.7-1.0) mg/dL Estim Creat Clear Calc ml/min Estimated GFR (59 - ) Glucose (65-110) mg/dL Lactic Acid 0.7 (0.7-2.0) mmol/L Calcium (8.4-10.2) mg/dL Magnesium (1.6-2.3) mg/dL Total Bilirubin (0.2-1.3) mg/dL AST (14-36) U/L ALT (6-35) U/L Alkaline Phosphatase (38-126) U/L Troponin I < 0.012 (0.000-0.034) ng/mL C-Reactive Protein (<1.0) mg/dL NT-Pro-B Natriuret Pep (19.9-100) pg/mL Total Protein (6.3-8.2) g/dL Albumin (3.5-5.1) g/dL Lipase (23-300) U/L Urine Color (Yellow) Urine Appearance (Clear) Urine pH (5.0-9.0) Ur Specific [place] (1.001-1.035) Urine Protein (Negative) mg/dL Urine Glucose (UA) (Negative) mg/dL Urine Ketones (Negative) mg/dL Ur Blood (Man) (Negative) Urine Nitrate (Negative) Urine Bilirubin (Negative) Urine Urobilinogen (<2.0) mg/dL Leukocyte Esterase Rfl (Negative) CARMEL/UL Urine RBC (0-2) /hpf Urine WBC (0-3) /hpf Ur Squamous Epith Cells (Few) /hpf Urine Bacteria /hpf Urine Casts POC Urine HCG, Qual (Negative) Influenza A (RT-PCR) (Negative) Influenza B (RT-PCR) (Negative) RSV (RT-PCR) (Negative) SARS-CoV-2 RNA (RT-PCR) (Negative) Imaging Data Radiologist's impression: ITS Impressions Chest X-Ray 02/06/25 20:18 IMPRESSION: Groundglass opacity bilaterally suggestive of pulmonary congestion. Abdomen/Pelvis CT 02/06/25 21:12 IMPRESSION: No acute abnormality is noted in the abdomen and pelvis. 1.4 cm nodule at the right lung base could be follow-up with CT in [address] scans at this facility are performed using low dose modulation techniques as appropriate to perform exam including the following: automated exposure control; use of iterative reconstruction technique; adjustment of the mA and/or kV according to patient size (this includes techniques or standardized protocols for targeted exams where dose is matched to indication/reason for exam). Chest CTA 02/06/25 21:55 IMPRESSION: There is no pulmonary embolism, aortic dissection, pericardial fluid or thoracic aneurysm. Groundglass opacity bilaterally suggestive of pulmonary congestion. There is a 13 mm pulmonary nodule within the right lower lobe. This could be follow-up with CT in [address] scans at this facility are performed using low dose modulation techniques as appropriate to perform exam including the following: automated exposure control; use of iterative reconstruction technique; adjustment of the mA and/or kV according to patient size (this includes techniques or standardized protocols for targeted exams where dose is matched to indication/reason for exam). ECG Data EKG #1: Attestation: I personally reviewed and interpreted this ECG as follows: ECG completion date: 02/06/25 ECG completion time: 20:40 Interpretation: Rate of 111, rhythm is sinus tachycardia, borderline minimal ST depression rhythm, no obvious T-wave abnormalities, no ST elevation. Discharge Plan Discharge Clinical Impression: Sepsis, UTI (urinary tract infection), Pneumonia Patient Disposition: Still a Patient Condition: Serious Instructions: Antibiotic Form Patient Language: Kyrgyz Prescriptions: No Action amoxicillin-pot clavulanate 875-125 mg tablet 1 tablet PO Q12H Qty: 20 0RF Follow-up/Referrals: PHYSICIAN,ENVIRONMENTAL RESEARCH PROJECT MANAGER [Non-Staff, Internal Medicine] Time of Disposition: 23:53
[2025-02-06 19:57] LABS: Hematocrit 39.5 % (37.0-47.0); Hemoglobin 12.8 g/dL (12.0-15.0); Immature Granulocyte Percent A 0.5 % (0-0.5); Lymphocytes Absolute Auto 2.21 K/mm3 (0.9-3.2); Mean Corpuscular HGB Conc 32.4 g/dl (32-36); Mean Corpuscular Hemoglobin 26.3 pg (26-34); Mean Corpuscular Volume 81.3 fl (80-100); Nucleated Red Blood Cells Absolute Auto 0.000 K/mm3 (0.0-0.012); Nucleated Red Blood Cells Perc 0.0 % (0.0-0.2); Platelet Count Result 353 k/mm3 (150-375); Red Blood Count 4.86 M/mm3 (4.2-5.4); White Blood Count 15.9 K/mm3 (4.5-10.0)
[2025-02-06 20:01] LABS: Add Urine Microscopic? YES; Appearance Urine Cloudy (Clear); Glucose Urine UA Negative (Negative); Leukocyte Esterase Ur 1+ LEU/UL (Negative); Nitrate Urine Negative (Negative); Non Pathogenic Casts 0-2; Specific Grav Ur 1.017 (1.001-1.035)
[2025-02-06 20:06] LABS: Alanine Aminotransferase 33 U/L (6-35); Albumin Level 4.2 g/dL (3.5-5.1); Alkaline Phosphatase 105 U/L (38-126); Anion Gap 7 mmol/L (4-12); Aspartate Amino Transferase 19 U/L (14-36); Bilirubin,Total 1.0 mg/dL (0.2-1.3); Blood Urea Nitrogen 10 mg/dL (7-17); Calcium 9.0 mg/dL (8.4-10.2); Carbon Dioxide 25 mmol/L (22-30); Chloride 102 mmol/L (98-107); Estimated CRCL calculation 204 ml/min; Estimated Glomerular Filt Rate > 60; Glucose 107 mg/dL (65-110); Lipase 65 U/L (23-300); Potassium 3.9 mmol/L (3.4-5.0); Sodium 134 mmol/L (137-145); Total Protein 8.6 g/dL (6.3-8.2)
--- OUTSIDE RECORDS SUMMARY | 2025-02-06 20:16 | XMS_ITS | Data Portability ---
Author Organization [place] - [employer], Main Office Address [address] [place] [address] Assessment No assessment recorded. Plan of Treatment Reminders Order Date Submit Date Provider Last Modified By Organization Details Last Modified Time Details Appointments None recorded. Lab HbA1c (hemoglobin A1c), blood 2022 023 [email or web address] Not available 3 08:02:56 CMP, serum or plasma 2022 023 BRENDA Not available 3 20:03:43 FSH (follicle-s timulating hormone), serum 2022 023 BRENDA Not available 3 11:38:49 lh (luteinizin g hormone), serum 2022 023 BRENDA Not available 3 11:38:49 CBC w/ auto diff 2022 023 BRENDA Not available 3 20:01:23 ferritin, serum or plasma 2022 023 BRENDA Not available 3 20:36:20 iron + total iron-bindin g capacity (TIBC), serum 2022 023 BRENDA Not available 3 20:03:37 TSH, serum or plasma 2022 023 BRENDA Not available 3 20:32:23 T4, free, serum 2022 023 BRENDA Not available 3 20:23:48 Referral psychiatris t referral - Please call patient to schedule an appointment . Thank you. 2023 024 [email or web address] [facility], [address], [place], [address], 08:49:42 Procedures None recorded. Surgeries None recorded. Imaging None recorded. Medication Orders spironolact one 100 mg tablet 2023 024 [facility] [employer] [facility] #[id number], [address], [place], [id number], 4 15:08:37 metformin ER 500 mg tablet,exte nded release 24 hr 2023 024 [facility] [employer] [facility] #91150, [address], [place], [id number], 4 15:07:21 venlafaxine ER 150 mg capsule,ext ended release 24 hr 2023 024 [facility] [employer] [facility] #08111, [address], [place], [id number], 4 15:07:41 spironolact one 100 mg tablet 2023 024 [facility] [employer] [facility] #53387, [address], [place], [id number], 4 14:27:28 bupropion HCl XL 150 mg 24 hr tablet, extended release 2023 024 [email or web address] [facility] [employer] [facility] #61025, [address], [place], [id number], 4 15:02:37 metformin ER 500 mg tablet,exte nded release 24 hr 2022 023 [facility] [employer] [facility] #77095, [address], [place], [id number], 3 12:13:58 escitalopra m 20 mg tablet 2022 023 [employer] [facility] #92988, [address], [place], [id number], 4 14:17:02 escitalopra m 10 mg tablet 2022 023 [email or web address], [address], [place], [id number], 4 14:16:58 Patient TargetsNo targets recorded. Patient InstructionsNo instructions recorded. Reason for Referral Psychiatrist Referral for Mi xed anxiety and depressive disorder Please call patient to schedule an appointment. Thank you. Referring Physician: Nuria Hines, Family Medicine, Encounter Date: 06/10/2023 Results Created Date Observation Date Name Description Value Unit Range Abnormal Flag Note LastModifiedBy Organization Detail LastModifiedTime 01/14/2001/13/2023 CBC/C OMPLE TE BLD COUNT W/DIF F white blood cells 12.1 x10'3 /uL 4.2-10 .8 high Not Available [facility] (Lab) [address] [place], [address], 01/13/2023 22:40:06 01/14/20 23 01/13/2023 CBC/C OMPLE TE BLD COUNT W/DIF F red blood cells 4.98 x10'6 /uL 3.80-5 .20 Not Available [facility] (Lab) [address] [place], [address], 01/13/2023 22:40:06 01/14/20 23 01/13/2023 CBC/C OMPLE TE BLD COUNT W/DIF F hemoglobin 14.1 g/dL 12.0-1 5.6 Not Available [facility] (Lab) [address] [place], [address], 01/13/2023 22:40:06 01/14/20 23 01/13/2023 CBC/C OMPLE TE BLD COUNT W/DIF F hematocrit 44.4 % 35.7-4 5.7 Not Available [facility] (Lab) [address] [place], [address], 01/13/2023 22:40:06 01/14/20 23 01/13/2023 CBC/C OMPLE TE BLD COUNT W/DIF F mean red cell volume 89.2 fL 82.0-9 9.0 Not Available [facility] (Lab) [address] [place], [address], 01/13/2023 22:40:06 01/14/20 23 01/13/2023 CBC/C OMPLE TE BLD COUNT W/DIF F mean red cell hemoglobin 28.3 pg 27.0-3 3.0 Not Available [facility] (Lab) [address] [facility] [place], [address], 01/13/2023 22:40:06 01/14/20 23 01/13/2023 CBC/C OMPLE TE BLD COUNT W/DIF F mean RBC HGB concentratio n 31.8 g/dL 31.0-3 6.0 Not Available [facility] (Lab) [address] [place], [address], 01/13/2023 22:40:06 01/14/20 23 01/13/2023 CBC/C OMPLE TE BLD COUNT W/DIF F red cell distribution width 12.9 % 11.8-1 5.5 Not Available [facility] (Lab) [address] [place], [address], 01/13/2023 22:40:06 01/14/20 23 01/13/2023 CBC/C OMPLE TE BLD COUNT W/DIF F platelets 287 x10'3 /uL 150-40 0 Not Available [facility] (Lab) [address] [facility] [place], [address], 01/13/2023 22:40:06 01/14/20 23 01/13/2023 CBC/C OMPLE TE BLD COUNT W/DIF F mean platelet volume 11.6 fL 9.0-12 .4 Not Available [facility] (Lab) [address] [place], [address], 01/13/2023 22:40:06 01/14/20 23 01/13/2023 CBC/C OMPLE TE BLD COUNT W/DIF F neutrophils 67.7 % 39.0-7 2.0 Not Available [facility] (Lab) [address] [place], [address], 01/13/2023 22:40:06 01/14/20 23 01/13/2023 CBC/C OMPLE TE BLD COUNT W/DIF F lymphocytes 21.1 % 16.0-4 7.0 Not Available [facility] (Lab) [address] [place], [address], 01/13/2023 22:40:06 01/14/20 23 01/13/2023 CBC/C OMPLE TE BLD COUNT W/DIF F monocytes 9.0 % 5.0-12 .0 Not Available [facility] (Lab) [address] [place], [address], 01/13/2023 22:40:06 01/14/20 23 01/13/2023 CBC/C OMPLE TE BLD COUNT W/DIF F eosinophils 1.1 % 1.0-7. 0 Not Available [facility] (Lab) [address] [place], [address], 01/13/2023 22:40:06 01/14/20 23 01/13/2023 CBC/C OMPLE TE BLD COUNT W/DIF F basophils 0.6 % 0.0-2. 0 Not Available [facility] (Lab) [address] [place], [address], 01/13/2023 22:40:06 01/14/20 23 01/13/2023 CBC/C OMPLE TE BLD COUNT W/DIF F immature granulocytes 0.5 % 0.00-0 .50 Not Available [facility] (Lab) [address] [place], [address], 01/13/2023 22:40:06 01/14/20 23 01/13/2023 CBC/C OMPLE TE BLD COUNT W/DIF F neutrophils, absolute count 8.17 x10'3 /uL 1.5-8. 0 high Not Available [facility] (Lab) [address] [place], [address], 01/13/2023 22:40:06 01/14/20 23 01/13/2023 CBC/C OMPLE TE BLD COUNT W/DIF F lymphocytes, absolute count 2.55 x10'3 /uL 1.07-3 .43 Not Available [facility] (Lab) [address] [place], [address], 01/13/2023 22:40:06 01/14/20 23 01/13/2023 CBC/C OMPLE TE BLD COUNT W/DIF F monocytes, absolute count 1.08 x10'3 /uL 0.29-0 .99 high Not Available [facility] (Lab) [address] [place], [address], 01/13/2023 22:40:06 01/14/20 23 01/13/2023 CBC/C OMPLE TE BLD COUNT W/DIF F eosinophils, absolute count 0.13 x10'3 /uL 0.02-0 .53 Not Available [facility] (Lab) [address] [place], [address], 01/13/2023 22:40:06 01/14/20 23 01/13/2023 CBC/C OMPLE TE BLD COUNT W/DIF F basophils, absolute count 0.07 x10'3 /uL 0.01-0 .08 Not Available [facility] (Lab) [address] [place], [address], 01/13/2023 22:40:06 01/14/20 23 01/13/2023 CBC/C OMPLE TE BLD COUNT W/DIF F immature granulocytes ,absolute 0.06 x10'3 /uL 0.00-0 .05 high Not Available [facility] (Lab) [address] [place], [address], 01/13/2023 22:40:06 01/14/20 23 01/13/2023 CBC/C OMPLE TE BLD COUNT W/DIF F nucleated red blood cells 0.0 % -0 Not Available [facility] (Lab) [address] [place], [address], 01/13/2023 22:40:06 01/14/20 23 01/13/2023 CBC/C OMPLE TE BLD COUNT W/DIF F NRBC# 0.00 x10'3 /uL Not Available [facility] (Lab) [address] [place], [address], 01/13/2023 22:40:06 01/14/20 23 01/13/2023 CBC/C OMPLE TE BLD COUNT W/DIF F plt clum 1+ Not Available [facility] (Lab) [address] [place], [address], 01/13/2023 22:40:06 01/14/20 23 01/13/2023 IRON/ TIBC PANEL total iron binding capacity 370 mcg/d L 265-47 5 Not Available [facility] (Lab) [address] [place], [address], 01/13/2023 20:11:47 01/14/20 23 01/13/2023 IRON/ TIBC PANEL % transferrin saturation 24 % 20-55 Not Available [facility] (Lab) [address] [place], [address], 01/13/2023 20:11:47 01/14/20 23 01/13/2023 IRON/ TIBC PANEL unsaturated iron bind capacity 283 mcg/d L 126-38 2 Not Available [facility] (Lab) [address] [place], [address], 01/13/2023 20:11:47 01/14/20 23 01/13/2023 IRON/ TIBC PANEL iron 87 mcg/d L 42-175 Not Available [facility] (Lab) [address] [place], [address], 01/13/2023 20:11:47 01/14/20 23 01/13/2023 COMPR EHENS BARTOLOME METAB OLIC PANEL sodium 139 mmol/ L 137-14 5 Not Available [facility] (Lab) [address] [place], [address], 01/13/2023 20:03:42 01/14/20 23 01/13/2023 COMPR EHENS BARTOLOME METAB OLIC PANEL potassium 4.1 mmol/ L 3.5-5. 1 Not Available [facility] (Lab) [address] [place], [address], 01/13/2023 20:03:42 01/14/20 23 01/13/2023 COMPR EHENS BARTOLOME METAB OLIC PANEL chloride 103 mmol/ L 98-107 Not Available [facility] (Lab) [address] [place], [address], 01/13/2023 20:03:42 01/14/20 23 01/13/2023 COMPR EHENS BARTOLOME METAB OLIC PANEL carbon dioxide 28 mmol/ L 22-30 Not Available [facility] (Lab) [address] [place], [address], 01/13/2023 20:03:42 01/14/20 23 01/13/2023 COMPR EHENS BARTOLOME METAB OLIC PANEL anion gap 12.1 mmol/ L 14-22 low Not Available [facility] (Lab) [address] [place], [address], 01/13/2023 20:03:42 01/14/20 23 01/13/2023 COMPR EHENS BARTOLOME METAB OLIC PANEL glucose 102 mg/dL 70-99 high Not Available [facility] (Lab) [address] [place], [address], 01/13/2023 20:03:42 01/14/20 23 01/13/2023 COMPR EHENS BARTOLOME METAB OLIC PANEL BUN 10 mg/dL 8-19 Not Available [facility] (Lab) [address] [place], [address], 01/13/2023 20:03:42 01/14/20 23 01/13/2023 COMPR EHENS BARTOLOME METAB OLIC PANEL creatinine 0.54 mg/dL 0.66-1 .25 low Not Available [facility] (Lab) [address] [place], [address], 01/13/2023 20:03:42 01/14/20 23 01/13/2023 COMPR EHENS BARTOLOME METAB OLIC PANEL GFR >60 Refer ence Range : [place] ge GFR Healt hy Adult : >60 mL/mi n/1.7 3 m2 Chron ic Kidne y Disea se: 15-60 mL/mi n/1.7 3 m2 Kidne y Failu re: <15/m L/min /1.73 m2 www.n iddk. nih.g ov The MDRD study equat ion has not been valid ated in child ranjan <18 years of age; pregn ant women ; the elder ly >85 years of age; or in some racia l or ethni c subgr oups, such as Hispa nics. Outsi de the valid ated deniz eters , estim ated GFR is less accur ate, requi ring clini yumiko judgm ent on a case- by-ca se basis . Clini yumiko inter preta tion for other races and ages must be made by the clini ernesto. The MDRD study equat ion has not been valid ated for the evalu ation of serum creat inine relat ed to nutri meena l statu s or medic ation usage . For perso ns <18 years of age, a pedia tric GFR calcu lator is avail able on the [facility] websi te: https ://diego w.osorio baxtery.o rg/pr ofess ional s/kdo qi/gf r_cal culat or Not Available [facility] (Lab) [address] [place], [address], 01/13/2023 20:03:42 01/14/20 23 01/13/2023 COMPR EHENS BARTOLOME METAB OLIC PANEL alkaline phosphatase 93 U/L 38-126 Not Available [facility] (Lab) [address] [place], [address], 01/13/2023 20:03:42 01/14/20 23 01/13/2023 COMPR EHENS BARTOLOME METAB OLIC PANEL alanine aminotransfe rase 25 U/L 0-35 Not Available [facility] (Lab) [address] [place], [address], 01/13/2023 20:03:42 01/14/20 23 01/13/2023 COMPR EHENS BARTOLOME METAB OLIC PANEL aspartate aminotransfe rase 28 U/L 15-37 Not Available [facility] (Lab) [address] [place], [address], 01/13/2023 20:03:42 01/14/20 23 01/13/2023 COMPR EHENS BARTOLOME METAB OLIC PANEL bilirubin, total 1.00 mg/dL 0.20-1 .30 Not Available [facility] (Lab) [address] [place], [address], 01/13/2023 20:03:42 01/14/20 23 01/13/2023 COMPR EHENS BARTOLOME METAB OLIC PANEL calcium 9.7 mg/dL 8.4-10 .2 Not Available [facility] (Lab) [address] [facility] [place], [address], 01/13/2023 20:03:42 01/14/20 23 01/13/2023 COMPR EHENS BARTOLOME METAB OLIC PANEL total protein 8.2 g/dL 6.3-8. 2 Not Available [facility] (Lab) [address] [place], [address], 01/13/2023 20:03:42 01/14/20 23 01/13/2023 COMPR EHENS BARTOLOME METAB OLIC PANEL albumin 4.2 g/dL 3.4-5. 0 Not Available [facility] (Lab) [address] [place], [address], 01/13/2023 20:03:42 01/14/20 23 01/13/2023 COMPR EHENS BARTOLOME METAB OLIC PANEL globulin 4.0 g/dL 2.6-4. 2 Not Available [facility] (Lab) [address] [place], [address], 01/13/2023 20:03:42 01/14/20 23 01/13/2023 COMPR EHENS BARTOLOME METAB OLIC PANEL A/G ratio 1.1 ratio 1.0-2. 0 Not Available [facility] (Lab) [address] [place], [address], 01/13/2023 20:03:42 01/14/20 23 01/13/2023 T4 FREE free T4 1.36 NG/dL 0.78-2 .19 Not Available [facility] (Lab) [address] [place], [address], 01/13/2023 20:23:48 01/14/20 23 01/13/2023 TSH thyroid-stim ulating hormone 2.670 uIU/m L 0.465- 4.680 Not Available [facility] (Lab) [address] [place], [address], 01/13/2023 20:32:23 01/14/20 23 01/13/2023 JUSTYNA TIN ferritin 34 NG/mL 6.24-1 37 Not Available [facility] (Lab) [address] [place], [address], 01/13/2023 20:36:20 01/14/20 23 01/13/2023 HEMOG LOBIN A1C HA1C 5.6 % 4.0-6. 0 Diabe yun Scree florentino Crite ryder: <5.7% Consi stent with absen ce of diabe yun 5.7-6 .4% Consi stent with incre ased risk for diabe yun (pred iabet es) >OR=6 .5% Consi stent with diabe yun REFER ENCE: Diabe yun Care 2016, 39(Mukherjee ppl.1 ):s13 -s22 Not Available [facility] (Lab) [address] [place], [address], 01/13/2023 22:34:35 01/14/20 23 01/15/2023 FSH/F OLLIC LE STIMU LAT. HORMO NE FSH - [facility] 7.9 mIU/m L Adult Femal e Range Folli cular phase 3.5 - 12.5 Ovula tion phase 4.7 - 21.5 Lutea l phase 1.7 - 7.7 Postm enopa usal 25.8 - 134.8 Perfo rmed at: CB - [facility] [address] [facility], [place] [address] Lab Direc tor: Lenny sheehan PhD, Phone : [phone] Not Available [facility] (Lab) [address] [place], [address], 01/15/2023 11:13:05 01/14/20 23 01/15/2023 LH/RD TEINI ZING HORMO NE LH - [facility] 14.9 mIU/m L Adult Femal e Range Folli cular phase 2.4 - 12.6 Ovula tion phase 14.0 - 95.6 Lutea l phase 1.0 - 11.4 Postm enopa usal 7.7 - 58.5 Perfo rmed at: CB - [facility] [address] [facility], [place] [id number] Lab Direc tor: Lenny sheehan PhD, Phone : [phone] Not Available [facility] (Lab) [address] [place], [address], 01/15/2023 11:13:07 Result Notes None recorded. Problems Name Problem SNOMED Code Status Onset Date Resolution Date Notes Provider Name and Address Organization Details Recorded Time Acute sinusitis 41820653 Active Not Available [facility] 3 06:45:12 Chronic sinusitis 62045879 Active Not Available [facility] 3 06:45:12 Hypothyroidis m 70851421 Active Not Available [facility] 3 06:45:12 Otitis media 76026835 Active Not Available [facility] 3 06:45:12 Hyperglycemia 46800430 Active Not Available [facility] 3 06:45:12 Weight gain 2510689 Active 2022 Nuria Hines MD [address], [address], [address] , [employer] [facility] [employer] 3 17:01:10 Fatigue 03306967 Active 2022 Nuria Hines MD [address], [place] [address], [place], [address] , [employer] [facility] [employer] 3 17:02:17 Amenorrhea 43915394 Active 2022 Nuria Hines MD [address], [address], [address] , [employer] [facility] [employer] [facility] 3 17:02:24 Depressive disorder 58515332 Active 2022 Nuria Hines MD [address], [address], [address] , [facility] [employer] [facility] 3 17:11:25 Mixed anxiety and depressive disorder 593800526 Active 2022 Nuria Hines MD [address], [facility] [address], [place], [address] , [facility] [employer] [facility] 3 17:11:58 Polycystic ovary syndrome 404355282 Active 2022 Nuria Hines MD [address], [facility] [address], [place], [address] , [facility] [employer] [facility] 3 12:10:51 Problem Notes None recorded. Procedures Surgical History Date Name Laterality Status Provider Name and Address Organization Details Recorded Time 2 Appendectomy completed Jose Ramon Cameron RN [facility] [employer] [facility] 01/12/2023 16:54:57 Sinus Surgery completed Jose Ramon Cameron RN [facility] [employer] [facility] 01/12/2023 16:54:48 Cyst Removal completed Jose Ramon Cameron RN [facility] [employer] [facility] 01/12/2023 16:55:01 Imaging Results None recorded. Procedure Notes None recorded. Medical Equipment None Reported. Allergies No known drug allergies Medications Name Sig Start Date Stop Date Status Note LastModified by Organization Details LastModified Time azithromyci n 250 mg tablet 2 tabs po qd x 1 day then 1 tab po qd x 4 days 01/12 completed Not Available Not Available Not Available hydrocodone 5 mg-acetamin ophen 325 mg tablet TAKE 1 OR 2 TABLETS BY MOUTH EVERY 6 HOURS NEEDED 01/12 completed Not Available Not Available Not Available spironolact one 100 mg tablet Take 1 tablet every day by oral route. 2023 active Not Available Not Available Not Avai lable venlafaxine ER 150 mg capsule,ext ended release 24 hr TAKE 1 CAPSULE BY MOUTH EVERY DAY active Not Available Not Available No t Available levothyroxi ne 25 mcg tablet TAKE 1 TABLET BY MOUTH EVERY DAY 01/12 completed Not Available Not Available Not Available amoxicillin 875 mg tablet Take 1 tablet every 12 hours by oral route for 7 days. 03/03 completed Not Available Not Available Not Available ondansetron 4 mg disintegrat ing tablet DISSOLVE 1 TABLET ON THE TONGUE EVERY 6 TO 8 HOURS NEEDED FOR NAUSEA OR VOMITING 01/12 completed Not Available Not Available Not Available fluticasone propionate 50 mcg/actuati on nasal spray,suspe nsion 2 sprays each nostril qd active Not Available Not Available No t Available metformin ER 500 mg tablet,exte nded release 24 hr TAKE 2 TABLETS BY MOUTH EVERY DAY WITH A MEAL active Not Available Not Available No t Available amoxicillin 875 mg-potassiu m clavulanate 125 mg tablet TAKE 1 TABLET BY MOUTH EVERY 12 HOURS FOR 10 DAYS 01/12 completed Not Available Not Available Not Available amoxicillin 500 mg-potassiu m clavulanate 125 mg tablet TAKE 1 TABLET BY MOUTH TWICE DAILY 01/12 completed Not Available Not Available Not Available Ventolin HFA 90 mcg/actuati on aerosol inhaler Inhale 2 puffs every 4 hours by inhalatio n route. active Not Available Not Available No t Available escitalopra m 10 mg tablet TAKE 1 TABLET BY MOUTH EVERY DAY 04/20 completed Not Available Not Available Not Available escitalopra m 20 mg tablet TAKE 1 TABLET BY MOUTH EVERY DAY 04/20 completed Not Available Not Available Not Available bupropion HCl XL 150 mg 24 hr tablet, extended release TAKE 1 TABLET BY MOUTH EVERY DAY 06/09 completed Not Available Not Available Not Available Vitals Date Recorded Body height Body mass index (BMI) Body weight Body temperature Heart rate Oxygen saturation Systolic And Diastolic Provider Name and Address Organization Details Last Updated DateTime 4 157.48 cm 69.3 kg/m2 615926. 51 g 98.1 [degF] 76 /min 96 % 154/98 mm[Hg] VINH Polanco [facility] [employer] [facility] 4 14:11:47 Date Recorded Body height Body mass index (BMI) Body weight Body temperature Oxygen saturation Heart rate Systolic And Diastolic Provider Name and Address Organization Details Last Updated DateTime 4 157.48 cm 70.2 kg/m2 655720. 47 g 97.8 [degF] 97 % 89 /min 146/78 mm[Hg] Jose Ramon Cameron RN [facility] [employer] [facility] 4 14:54:38 Date Recorded Body weight Body temperature Heart rate Oxygen saturation Systolic And Diastolic Provider Name and Address Organization Details Last Updated DateTime 3 630021. 92 g 96.7 [degF] 104 /min 98 % 158/84 mm[Hg] Jose Ramon Cameron RN [facility] [employer] [facility] 3 16:54:06 Date Recorded Body weight Body mass index (BMI) Body height Body temperature Heart rate Oxygen saturation Systolic And Diastolic Provider Name and Address Organization Details Last Updated DateTime 3 482029. 51 g 69.3 kg/m2 157.48 cm 97.9 [degF] 80 /min 97 % 124/76 mm[Hg] Marivel simon CMA [facility] [employer] [facility] 3 12:02:47 Social History None recorded. Functional Status None recorded. Mental Status None recorded. Family History Nothing Reported. Medical History No medical history recorded. Gynecological HistoryNo gynecological history recorded. Obstetrics History GPAL:G 0 P 0 0 0 0 Immunizations Vaccine Type Date Status Note Provider Nam e and Address Organization Details Recorded Time Influenza, split virus, quadrivalent, PF 3 completed Nuria Hines MD [address] [place] [address], [address], [facility] [employer] [facility] 01/31/2023 08:24:23 meningococcal MCV4P 5 completed Not Available [facility] 05/06/2022 06:50:14 Influenza, split virus, quadrivalent, PF 5 completed Not Available [facility] 05/06/2022 06:50:14 Past Encounters Encounter ID Performer Location Encounter Start Date Encounter Closed Date Diagnosis/Indication Diagnosis SNOMED-CT Code Diagnosis ICD10 Code Diagnosis IMO Codes Diagnosis Note [id number] Nuria Hines MD [facility] [address] [place] [address] 01/12/2023 16:33:57 01/12/2023 17:24:22 Administration of influenza vaccine 40786505 Z23 Hypothyroidism 15987542 E03.9 Weight gain 9244940 R63. 5 Fatigue 81541309 R53.83 Amenorrhea 39916717 N91. 2 Mixed anxi ety and depressive disorder 006254562 F41.8 begin escitalopr am 10 mg daily with foodReview ed potential med s/e, d/c and be seen if any si/hif/u in 4 weeks or sooner if needed [id number] Nuria Hines MD [facility] [address] [place] [address] 03/03/2023 11:55:50 03/03/2023 12:15:53 Polycystic ovary syndrome 720513215 E28.2 discussed at lengthwork on healthy diet/exerc isebegin metformin ER 500 mg 2 tabs daily with food Mixed anxi ety and depressive disorder 684895861 F41.8 begin escitalopr am 10 mg daily with foodReview ed potential med s/e, d/c and be seen if any si/hif/u in 4 weeks or sooner if needed update 03/03/23: no improvemen tincrease escitalopr am 20 mg daily with foodf/u in 4 weeks or sooner if needed [id number] Nuria Hines MD [facility] Primary [facility] [address] [place] [address] 04/20/2023 14:07:09 04/20/2023 15:02:29 Mixed anxiety and depressive disorder 615954374 F41.8 begin escitalopr am 10 mg daily [facility] potential med s/e, d/c and be seen if any si/hif/u in 4 weeks or sooner if needed update 03/03/23: no improvemen tincrease escitalopr am 20 mg daily with foodf/u in 4 weeks or sooner if needed update 04/20/23: little improvemen t, struggles with depressive symptomsd/ c escitalopr amtrial of bupropion xl 150 mg daily with food in AM Polycystic ovary syndrome 618345096 E28.2 discussed at lengthwork on healthy diet/exerc isecontinu e metformin ER 500 mg 2 tabs daily with foodstart spironolac tone 100 mg po qAM for hirsutismf /u in 4 weeks [id number] Nuria Hines MD [facility] Primary Care [facility] [address] [facility] [address] [place] [address] 06/10/2023 14:49:02 06/10/2023 15:07:26 Mixed anxiety and depressive disorder 213736264 F41.8 begin escitalopr am 10 mg daily with foodReview ed potential med s/e, d/c and be seen if any si/hif/u in 4 weeks or sooner if needed update 03/03/23: no improvemen tincrease escitalopr am 20 mg daily with foodf/u in 4 weeks or sooner if needed update 04/20/23: little improvemen t, struggles with depressive symptomsd/ c escitalopr amtrial of bupropion xl 150 mg daily with food in AM update 06/10/23: no improvemen td/c bupropiont rial of venlafaxin e ER 150 mg daily with foodpsychi atry referral given as no improvemen t so farf/u in 3 months or sooner as needed Polycystic ovary syndrome [id number] E28.2 discussed at lengthwork on healthy diet/exerc isecontinu e metformin ER 500 mg 2 tabs daily with foodstart spironolac tone 100 mg po qAM for hirsutismf /u in 4 weeks 06/10/23: refill given Health Concerns Section Related Observation LastModified by Organization Detai ls LastModified Time None Recorded Concern Status LastModified by Organization Details LastModified Time None Recorded Advance Directives Directive None Recorded Payers Insurance Date Sequence Insurance Name Policy Number Policy Manzano Covered Member ID Manzano Member ID Guarantor Name 06/10/2023 1 [facility] (MEDICAID HMO) [id number] Jennie Bee [id number] Jennie Bee 04/20/2023 1 [employer] (MEDICAID HMO) Jennie Bee [id number] Jennie Bee Notes Date Note Type Note Provider Name and Address Organization Details Recorded Time 3 text/html ROS as noted in the HPI FatiguePeriods irregularMiscarriage last yearHas been off thyroid medication since around 2018Has gained 40 pounds in the past years hard to get out bed, cries easily, lost her job, no si/hi since her miscarriage last yearfiancee and parents are supportive Nuria Hines MD [address], [place], [address], [employer] [facility] [employer] 01/31/2023 08:25:52 3 text/html ROS as noted in the HPI FatiguePeriods irregularMiscarriage last yearHas been off thyroid medication since around 2018Has gained 40 pounds in the past years hard to get out bed, cries easily, lost her job, no si/hi since her miscarriage last yearfiancee and parents are supportive update 03/03/23: No improvement with escitalopram, but tolerating it well. No si/hi. Nuria Hines MD [address], [place], [address], [employer] [facility] [employer] 03/03/2023 12:14:35 4 text/html ROS as noted in the HPI FatiguePeriods irregularMiscarriage last yearHas been off thyroid medication since around 2017Has gained 40 pounds in the past years hard to get out bed, cries easily, lost her job, no si/hi since her miscarriage last yearfiancee and parents are supportive update 03/03/23: No improvement with escitalopram, but tolerating it well. No si/hi. update 04/20/23: currently on escitalopram 20 mg daily and has noticed some improvement but not yet to baseline. She struggles with depressive symptoms, poor energy, motivation is down. she continues to have issues with facial hair, and hair thinning. Nuria Hines MD [address], [place], [address], [employer] [facility] [employer] 04/20/2023 14:28:30 4 text/html ROS as noted in the HPI FatiguePeriods irregularMiscarriage last yearHas been off thyroid medication since around 2017Has gained 40 pounds in the past years hard to get out bed, cries easily, lost her job, no si/hi since her miscarriage last yearfiancee and parents are supportive update 03/03/23: No improvement with escitalopram, but tolerating it well. No si/hi. update 04/20/23: currently on escitalopram 20 mg daily and has noticed some improvement but not yet to baseline. She struggles with depressive symptoms, poor energy, motivation is down. she continues to have issues with facial hair, and hair thinning. update 06/10/23: About a week ago she was having intense mood swings, she was irritable then would cry easily, lasted a few days. Outside of that she is tolerating the bupropion but has not noticed any improvement with bupropion and her energy may be worse. Nuria Hines MD [address] [place] [address], [facility] [address], [place], [address], [place] [facility] 06/10/2023 15:07:16 OBGyn Episode No OBEpisode recorded.
[2025-02-06 20:26] LABS: INR 1.1; Partial Thromboplastin Time 25.6 Seconds (22.3-36.8); Prothrombin Time 14.2 Seconds (11.1-14.7); Troponin I < 0.012 ng/mL (0.000-0.034)
[2025-02-06 20:27] LABS: CRP 4.3 mg/dL (<1.0); Magnesium 1.8 mg/dL (1.6-2.3)
[2025-02-06 20:32] LABS: Influenza A QL RT-PCR Negative (Negative); Influenza B QL RT-PCR Negative (Negative); RSV RNA, RT-PCR Negative (Negative); SARS-CoV-2 RNA PCR Negative (Negative)
[2025-02-06] MEDS: SODIUM CHLORIDE 0.9% IV 1,000 ML 999 ML IV CONT ×2 (20:37→23:45)
[2025-02-06] MEDS: SODIUM CHLORIDE 0.9% IV 500 ML 999 ML IV CONT (20:37)
[2025-02-06] MEDS: KETOROLAC 15 MG/ML VIAL (*BKC) IV PUSH (20:37)
[2025-02-06] MEDS: cefTRIAXone 1 GM in SODIUM CHLORIDE 0.9% IV 50 ML 100 ML IVPB (20:37)
[2025-02-06] MEDS: ONDANSETRON INJ 4 MG/2 ML VIAL IV PUSH (20:38)
[2025-02-06 22:05] LABS: NT Pro B Type Natriuretic Pept < 20 pg/mL (19.9-100)
--- NOTE | 2025-02-06 22:46 | ECG_ITS ---
Test Date: 2025-02-06 22:51:11 Measurements Intervals Stone Rate: 107 P: 15 AK: 144 QRS: 58 QRSD: 97 T: 5 QT: 329 QTc: 440 Interpretive Statements SINUS TACHYCARDIA MINIMAL Q WAVES- INFERIOR LEADS ABNORMAL ECG Compared to ECG 02/06/2025 20:40:58 No significant changes Electronically Signed On 02-07-2025 06:11:34 ECHOMETER ENGINEER by Boris Sneed D.O.
[2025-02-06 23:15] LABS: Troponin I < 0.012 ng/mL (0.000-0.034)
[2025-02-06] MEDS: AZITHROMYCIN IV 500 MG in SODIUM CHLORIDE 0.9% IV 250 ML IVPB (23:45)
[2025-02-07] VITALS (11 sets, daily range): BP systolic 113–148; BP diastolic 63–86; PULSE 93–115; RESP 14–20; TEMP 36.3–36.8; O2SAT 95–99
[2025-02-07] MEDS: SODIUM CHLORIDE 0.9% IV 1,000 ML 125 ML IV CONT ×3 (00:30→17:26)
--- NOTE | 2025-02-07 00:55 | WPCEDHO ---
ED Hand Off Checklist All vitals saved: Y IV Site documented: Y All med administrations documented: Y Triage Note Triage Note pt to ED w/ complaints of lower 02/06/25 16:59 abd pain and nausea that started around 0500 this am. denies any vomiting. pt reports she's been sick the past few days with diarrhea as well. Allergies No Known Allergies Allergy (Mild, Verified 02/06/25 16:57) PT DENIES ALLERGIES DAY OF SURGERY 07/04 MOTHER CONFIRMED NKDA Family History (Last Reviewed 10/07/24 @ 13:37 by Heather Burk APRN) Grandparent Diabetes mellitus Active Medications including assessments/comments Sodium Chloride (Normal Saline Iv) 1,000 mls @ 125 mls/hr IV CONT .Q8H KATHLEEN Last Admin: 02/07/25 00:30 Dose: 125 mls/hr Documented By: MAURICIO Infusion/Titration Document 02/07/25 00:30 MAURICIO (Rec: 02/07/25 00:30 MAURICIO [id number]) Intake IV Site Peripheral Access Right Forearm Container Volume 1,000 Waste Amount 0 Dosing Infusion Rate 125 Cumulative Dose Not Applicable Increase/Decrease Started Elapsed Time Elapsed Time ( 0m minutes) Administered/Completed Medications Discontinued Medications Sodium Chloride (Normal Saline Iv) 1,000 mls @ 999 mls/hr IV CONT .Q1H1M STA Stop: 02/06/25 20:53 Last Infusion: 02/06/25 21:38 Dose: Infused Documented By: Admin: 02/06/25 20:37 Dose: 999 mls/hr Documented By: MAURICIO Sodium Chloride (Normal Saline Iv) 500 mls @ 999 mls/hr IV CONT .Q31M STA Stop: 02/06/25 20:23 Last Infusion: 02/06/25 21:38 Dose: Infused Documented By: Admin: 02/06/25 20:37 Dose: 999 mls/hr Documented By: MAURICIO Ceftriaxone Sodium 1 gm/ (Sodium Chloride) 50 mls @ 100 mls/hr IVPB ONCE STA Stop: 02/06/25 20:35 Last Infusion: 02/06/25 21:07 Dose: Infused Documented By: Admin: 02/06/25 20:37 Dose: 100 mls/hr Documented By: MAURICIO Ceftriaxone Sodium 1 gm/ (Sodium Chloride) 50 mls @ 100 mls/hr IVPB Q24H KATHLEEN Last Admin: 02/06/25 20:43 Dose: Not Given Documented By: MAURICIO Non-Admin Reason: Order Discontinued Azithromycin 500 mg/ Sodium (Chloride) 250 mls @ 250 mls/hr IVPB ONCE STA Stop: 02/07/25 00:04 Last Infusion: 02/07/25 00:43 Dose: Infused Documented By: Admin: 02/06/25 23:45 Dose: 250 mls/hr Documented By: MAURICIO Sodium Chloride (Normal Saline Iv) 1,000 mls @ 999 mls/hr IV CONT .Q1H1M STA Stop: 02/07/25 00:06 Last Infusion: 02/07/25 00:43 Dose: Infused Documented By: Admin: 02/06/25 23:45 Dose: 999 mls/hr Documented By: MAURICIO Ketorolac Tromethamine (Ketorolac 15 Mg/Ml Vial (*Bkc)) 15 mg IV PUSH ONCE STA Stop: 02/06/25 19:54 Last Admin: 02/06/25 20:37 Dose: 15 mg Documented By: MAURICIO Ondansetron HCl (Ondansetron Inj 4 Mg/2 Ml Vial) 4 mg IV PUSH ONCE STA Stop: 02/06/25 19:54 Last Admin: 02/06/25 20:38 Dose: 4 mg Documented By: MAURICIO Interventions/Assessments IV / Saline Lock, Insert Start: 02/06/25 19:33 Freq: STAT Status: Active Protocol: Document 02/06/25 19:33 MAURICIO (Rec: 02/06/25 19:52 GIANAK [id number]) IV Assessment Peripheral Access Right Forearm IV Catheter Access Initiated IV Insertion Date 02/06/25 IV Insertion Time 19:40 Catheter Gauge 18 IV Insertion 1 Attempts Ultrasound Used for No Placement IV Site Assessment WNL IV Care and WNL Maintenance PA: Gastrointestinal Assessment Start: 02/06/25 16:57 Freq: Status: Active Protocol: Document 02/06/25 20:44 GIANAK (Rec: 02/06/25 20:45 HNK [id number]) GI Assessment Gastrointestinal Nausea,Pain Symptoms Description Large,Round,Tender Pattern Normal Flatus Present Gastrointestinal Pt reports lower abd pain, nausea/vomiting since 0500 Additional Comments this morning. Last Vital Signs Temperature 98.9 F 02/06/25 19:52 Pulse Rate 115 H 12/03/25 00:01 Respiratory Rate 17 02/07/25 00:01 Pulse Oximetry 98 02/07/25 00:01 Blood Pressure 130/86 02/07/25 00:01 Blood Pressure Mean 100 02/07/25 00:01 Oxygen Delivery Room Air 02/06/25 16:59 Weight 195 kg 02/06/25 16:59 Last Result - Abnormals Only WBC 15.9 K/mm3 (4.5-10.0) H 02/06/25 19:46 Neut % (Auto) 76.7 % (45.5-73.1) H 02/06/25 19:46 Lymph % (Auto) 13.9 % (18.3-44.2) L 02/06/25 19:46 [place] # (Auto) 1.4 K/mm3 (0.1-0.6) H 02/06/25 19:46 Abs Immat Gran (auto) 0.08 K/mm3 (0.00-0.031) H 02/06/25 19:46 Absolute Neuts (auto) 12.2 K/mm3 (1.3-6.7) H 02/06/25 19:46 Sodium 134 mmol/L (137-145) L 02/06/25 19:46 Creatinine 0.60 mg/dL (0.7-1.0) L 02/06/25 19:46 Lactic Acid 2.1 mmol/L (0.7-2.0) H 02/06/25 19:46 C-Reactive Protein 4.3 mg/dL (<1.0) H 02/06/25 19:46 Total Protein 8.6 g/dL (6.3-8.2) H 02/06/25 19:46 Urine Appearance Cloudy (Clear) H 02/06/25 19:46 Ur Blood (Man) 1+ (Negative) H 02/06/25 19:46 Leukocyte Esterase Rfl 1+ CARMEL/UL (Negative) H 02/06/25 19:46 Urine WBC 11-20 /hpf (0-3) H 02/06/25 19:46 Urine Bacteria 1+ /hpf H 02/06/25 19:46 Most Recent Suicide Severity Rating Suicide Severity Rating NO RISK INDICATED 02/06/25 16:59
--- NOTE | 2025-02-07 01:23 | ADMGEN ---
This patient, Jennie Bee, was admitted to Medical Room 347-01. Patient/family oriented to hospital policies and general routines including ID bracelet, bed and alarms, visiting hours, pain management, procedures, bathroom and other care routines, personal items, smoking policy, room service/diet, and visiting hours. Information on how to activate the Rapid Response Team has been discussed. Patient/Family are encouraged to report perceived risks to care and to ask questions if they do not understand what they are told or what they should do.
[2025-02-07] MEDS: IPRATROPIUM 0.5 MG/ALBUTEROL SULFATE 2.5 MG (BASE) AMPUL.NEB 3 ML INHALATION (02:48)
--- NOTE | 2025-02-07 06:24 | P.HP_ITS ---
H&P: HPI History of Present Illness Date/Time: 02/07/25 06:24 Chief Complaint: Lower abdominal pain and nausea. Narrative: 29-year-old female with obesity class 3, PCOS presents to [facility] ER on 02/06/2025 with 1-2 days of lower abdominal pain and discomfort with nausea. Denies vomiting, diarrhea. Endorses dysuria, urinary frequency and urinary urgency. One month ago she took amoxicillin for an upper respiratory infection. Upon evaluation her temperature is 100? F, sinus tachycardia in the 100s. EKG showing the same. WBC 35598, neutrophilia, lactic acid 2.1 improving 2.7. Troponin negative x2. CRP 4.3, urinalysis 11-20 WBC, leukocyte esterase positive, bacteria 1+. Quad viral screen negative. Urine hCG negative. Chest CTA negative for PE, ground-glass opacities bilaterally suggesting pulmonary congestion. 13 mm pulmonary nodule within the right lower lobe. Without acute abnormalities. Patient was given ceftriaxone, azithromycin, 1.5 L normal saline bolus,Ketoralac. Review of Systems Review of Systems: All systems reviewed & are unremarkable except as noted in HPI and below (Subjective) [facility], [facility] Past Medical History Medical History Irregular periods Suppression of menses Surgical History Surgical History History of tonsillectomy Family History Family History Grandparent Diabetes mellitus Social History Social History Smoking status: Never smoker Second hand tobacco smoke exposure: No Alcohol intake: current Alcohol use details: socially Substance use: current Substance use type: marijuana Lack of Transportation: No Lack of Food: Never True Current Housing: I Have Housing Concerned About Future Housing: No Difficulty Paying Gas/Electric Bills: No Difficulty Paying for Meds: No Currently Unemployed: No Education: High School Diploma/GED Difficulty w/ Childcare or Family Care: No Living arrangements: with family Occupation/Education: occupation 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 Gender identity (if verbalized by the patient): Female Sexual Orientation (if Verbalized by the Patient): Straight or Heterosexual Spiritual care concerns: No Meds Home Medications and Allergies Home Medications ?Medication ?Instructions ?Recorded ?Confirmed ?Type No Home Medications 02/07/25 02/07/25 H istory Allergies Allergy/AdvReac Type Severity Reaction Status Date / Time No Known Allergies Allergy Mild Verified 02/07/25 01:33 Vital Signs Vital Signs - 24 hr 02/06/25 16:59 02/06/25 19:52 02/06/25 20:38 Temperature 100 F H 98.9 F Pulse Rate 126 H 120 H 109 H Respiratory Rate 19 18 13 Blood Pressure 147/90 H 134/70 136/82 Pulse Oximetry 98 97 98 Oxygen Delivery Room Air 02/06/25 20:46 02/06/25 22:46 02/06/25 23:01 Temperature Pulse Rate 117 H 108 H 116 H Respiratory Rate 22 H 13 14 Blood Pressure 119/68 114/72 121/62 Pulse Oximetry 97 96 100 Oxygen Delivery 02/06/25 23:31 02/07/25 00:01 02/07/25 01:51 Temperature Pulse Rate 111 H 115 H Respiratory Rate 15 17 Blood Pressure 140/87 130/86 Pulse Oximetry 100 98 Oxygen Delivery Room Air 02/07/25 01:58 02/07/25 02:51 02/07/25 02:51 Temperature 98.0 F Pulse Rate 111 H 106 H Respiratory Rate 16 20 Blood Pressure 115/66 Pulse Oximetry 97 95 Oxygen Delivery Room Air 02/07/25 02:58 02/07/25 04:00 02/07/25 05:12 Temperature 97.6 F Pulse Rate 104 H 106 H 97 Respiratory Rate 20 14 Blood Pressure 113/80 Pulse Oximetry 98 Oxygen Delivery Exam Const: General: comfortable and no acute distress Other: A&O x3 Eyes: Pupils: Equal, round and reactive pupils present Neck: Neck: supple Resp: Effort & Inspection: normal respiratory effort Auscultation: clear to auscultation bilaterally Cardio: Rate: tachycardic Rhythm: regular rhythm GI: Inspection: non-distended GI Palp: Yes Soft to palpation Extrem: General: no edema Results Labs Labs: Short CBC 02/06/25 Range/Units 19:46 WBC 15.9 H (4.5-10.0) K/mm3 Hgb 12.8 (12.0-15.0) g/dL Hct 39.5 (37.0-47.0) % Plt Count 353 (150-375) k/mm3 BMP 02/06/25 19:46 Sodium 134 L Potassium 3.9 Chloride 102 Carbon Dioxide 25 BUN 10 Creatinine 0.60 L Glucose 107 Calcium 9.0 Cardiac Enzymes 02/06/25 02/06/25 Range/Units 19:46 22:39 Troponin I < 0.012 < 0.012 (0.000-0.034) ng/mL Liver Function 02/06/25 Range/Units 19:46 Total Bilirubin 1.0 (0.2-1.3) mg/dL AST 19 (14-36) U/L ALT 33 (6-35) U/L Alkaline Phosphatase 105 (38-126) U/L Albumin 4.2 (3.5-5.1) g/dL Urine 02/06/25 Range/Units 19:46 Urine Color Yellow (Yellow) Urine Appearance Cloudy H (Clear) Urine pH 8.0 (5.0-9.0) Ur Specific [place] 1.017 (1.001-1.035) Urine Protein Negative (Negative) mg/dL Urine Glucose (UA) Negative (Negative) mg/dL Assessment and Plan Assessment and plan (1) Sepsis: Code(s): A41.9 - Sepsis, unspecified organism Status: Acute (2) UTI (urinary tract infection): Code(s): N39.0 - Urinary tract infection, site not specified Status: Acute Plan Patient presents with diffuse lower abdominal pain likely due to urinary tract infection with sepsis without shock as evidence by fever, tachycardia. Patient denies shortness of breath, cough. Will not continue azithromycin at this time. Continue ceftriaxone. Follow-up urine and blood cultures. Suggest lifestyle modification to start, follow-up in the outpatient setting for class 3 obesity. Full code. Time Spent with Patient Time with patient: less than 45 minutes Hospitalist MIPS Advance Care Plan I have confirmed that the patient's Advanced Care Plan is present, code status is documented, or surrogate decision maker is listed in patient medical record.: Yes Medication Reconciliation I have utilized all available resources to obtain, update and review the patients current medications (includes all prescriptions, OTC, herbals, cannabis, and nutritional supplements).: Yes
[2025-02-07 06:46] LABS: Hematocrit 35.6 % (37.0-47.0); Hemoglobin 11.2 g/dL (12.0-15.0); Immature Granulocyte Percent A 0.4 % (0-0.5); Lymphocytes Absolute Auto 1.78 K/mm3 (0.9-3.2); Mean Corpuscular HGB Conc 31.5 g/dl (32-36); Mean Corpuscular Hemoglobin 26.1 pg (26-34); Mean Corpuscular Volume 83.0 fl (80-100); Nucleated Red Blood Cells Absolute Auto 0.000 K/mm3 (0.0-0.012); Nucleated Red Blood Cells Perc 0.0 % (0.0-0.2); Platelet Count Result 261 k/mm3 (150-375); Red Blood Count 4.29 M/mm3 (4.2-5.4); White Blood Count 9.6 K/mm3 (4.5-10.0)
[2025-02-07 07:05] LABS: Anion Gap 2 mmol/L (4-12); Blood Urea Nitrogen 9 mg/dL (7-17); Calcium 8.5 mg/dL (8.4-10.2); Carbon Dioxide 28 mmol/L (22-30); Chloride 106 mmol/L (98-107); Estimated CRCL calculation 182 ml/min; Estimated Glomerular Filt Rate > 60; Glucose 114 mg/dL (65-110); Magnesium 2.0 mg/dL (1.6-2.3); Potassium 3.9 mmol/L (3.4-5.0); Sodium 136 mmol/L (137-145)
[2025-02-07 07:14] LABS: Procalcitonin 0.1 ng/mL
--- NOTE | 2025-02-07 13:17 | PM.IMPN2 ---
Assessment and Plan Assessment and Plan (1) Morbid obesity: Code(s): E66.01 - Morbid (severe) obesity due to excess calories Status: Acute (2) UTI (urinary tract infection): Code(s): N39.0 - Urinary tract infection, site not specified Status: Acute (3) Sepsis: Code(s): A41.9 - Sepsis, unspecified organism Status: Acute Plan 29-year-old female with obesity class 3, PCOS presents to [facility] ER on 02/06/2025 with 1-2 days of lower abdominal pain and discomfort with nausea. Denies vomiting, diarrhea. Chest CTA negative for PE, ground-glass opacities bilaterally suggesting pulmonary congestion. 13 mm pulmonary nodule within the right lower lobe. CT abdomen Without acute abnormalities. Admitted with concerns for sepsis with possible UTI 1. Sepsis: ? Secondary to UTI Follow-up urine culture Follow-up blood culture Continue with ceftriaxone Empirically continue with azithromycin Follow-up blood cultures Leukocytosis has resolved Follow-up for any fever Intermittent abdominal pain Add PPI 2. Pulmonary nodule: Repeat CT chest needed in 6 weeks 3. Morbid obesity: Will benefit from nutritional consult, outpatient follow-up Weight loss 4. Code status: Full 5. DVT prophylaxis: Heparin subQ 6. Disposition: Pending improvement Subjective Date/time seen: 02/07/25 13:17 Interval history: Still has abdominal pain Review of Systems Review of Systems: All systems reviewed & are unremarkable except as noted in HPI and below Exam Const: General: comfortable and no acute distress Other: A&O x3 Eyes: Pupils: Equal, round and reactive pupils present Neck: Neck: supple Resp: Effort & Inspection: normal respiratory effort Auscultation: clear to auscultation bilaterally Cardio: Rhythm: regular rhythm GI: Inspection: non-distended GI Palp: Yes Soft to palpation Extrem: General: no edema Objective Data Vital Signs Vital Signs: Vital Signs - 24 hr 02/06/25 16:59 02/06/25 19:52 02/06/25 20:38 Temperature 100 F H 98.9 F Pulse Rate 126 H 120 H 109 H Respiratory Rate 19 18 13 Blood Pressure 147/90 H 134/70 136/82 Pulse Oximetry 98 97 98 Oxygen Delivery Room Air 02/06/25 20:46 02/06/25 22:46 02/06/25 23:01 Temperature Pulse Rate 117 H 108 H 116 H Respiratory Rate 22 H 13 14 Blood Pressure 119/68 114/72 121/62 Pulse Oximetry 97 96 100 Oxygen Delivery 02/06/25 23:31 02/07/25 00:01 02/07/25 01:51 Temperature Pulse Rate 111 H 115 H Respiratory Rate 15 17 Blood Pressure 140/87 130/86 Pulse Oximetry 100 98 Oxygen Delivery Room Air 02/07/25 01:58 02/07/25 02:51 02/07/25 02:51 Temperature 98.0 F Pulse Rate 111 H 106 H Respiratory Rate 16 20 Blood Pressure 115/66 Pulse Oximetry 97 95 Oxygen Delivery Room Air 02/07/25 02:58 02/07/25 04:00 02/07/25 05:12 Temperature 97.6 F Pulse Rate 104 H 106 H 97 Respiratory Rate 20 14 Blood Pressure 113/80 Pulse Oximetry 98 Oxygen Delivery 02/07/25 08:00 Temperature Pulse Rate Respiratory Rate Blood Pressure Pulse Oximetry Oxygen Delivery Room Air Intake/Output Intake/Output: Intake & Output 02/04/25 02/05/25 02/06/25 02/07/25 23:59 23:59 23:59 23:59 Intake Total 1550 2490 Balance 1550 2490 Meds/Results Medications: Active Medications Generic Name Dose Route Start Last Admin Trade Name Freq PRN Reason Stop Dose Admin Acetaminophen 650 mg 02/06/25 23:53 Acetaminophen 325 Mg Tablet PO Q4H PRN Mild Pain (1-3) or Fever Albuterol/Ipratropium 3 ml 02/07/25 06:32 Ipratropium 0.5 Mg/Albuterol Sulfate 2.5 Mg (Base) Ampul.Neb 3 Ml INHALATION Q6HRT PRN sob Sodium Chloride 1,000 mls @ 125 mls/hr 02/06/25 23:55 02/07/25 09:02 Normal Saline Iv IV CONT 125 mls/hr .Q8H KATHLEEN Administration Ceftriaxone Sodium 1 gm/ 50 mls @ 100 mls/hr 02/07/25 21:00 Sodium Chloride IVPB Q24H KATHLEEN Ondansetron HCl 4 mg 02/06/25 23:53 Ondansetron Inj 4 Mg/2 Ml Vial IV PUSH Q4H PRN Nausea Pantoprazole Sodium 40 mg 02/07/25 21:00 Pantoprazole Sodium Iv 40 Mg Vial IV PUSH Q12HR KATHLEEN Radiology Results: ITS Impressions Chest X-Ray 02/06/25 20:18 IMPRESSION: Groundglass opacity bilaterally suggestive of pulmonary congestion. Abdomen/Pelvis CT 02/06/25 21:12 IMPRESSION: No acute abnormality is noted in the abdomen and pelvis. 1.4 cm nodule at the right lung base could be follow-up with CT in [address] scans at this facility are performed using low dose modulation techniques as appropriate to perform exam including the following: automated exposure control; use of iterative reconstruction technique; adjustment of the mA and/or kV according to patient size (this includes techniques or standardized protocols for targeted exams where dose is matched to indication/reason for exam). Chest CTA 02/06/25 21:55 IMPRESSION: There is no pulmonary embolism, aortic dissection, pericardial fluid or thoracic aneurysm. Groundglass opacity bilaterally suggestive of pulmonary congestion. There is a 13 mm pulmonary nodule within the right lower lobe. This could be follow-up with CT in [address] scans at this facility are performed using low dose modulation techniques as appropriate to perform exam including the following: automated exposure control; use of iterative reconstruction technique; adjustment of the mA and/or kV according to patient size (this includes techniques or standardized protocols for targeted exams where dose is matched to indication/reason for exam). Labs Labs: Laboratory Results - last 24 hr 02/06/25 02/06/25 02/06/25 19:33 19:46 19:54 WBC 15.9 H RBC 4.86 Hgb 12.8 Hct 39.5 MCV 81.3 MCH 26.3 MCHC 32.4 RDW 14.5 Plt Count 353 MPV 9.4 Immature Gran % (Auto) 0.5 Neut % (Auto) 76.7 H Lymph % (Auto) 13.9 L [place] % (Auto) 8.5 Eos % (Auto) 0.2 Baso % (Auto) 0.2 Lymph # (Auto) 2.21 [place] # (Auto) 1.4 H Eos # (Auto) 0.0 Baso # (Auto) 0.0 Abs Immat Gran (auto) 0.08 H Absolute Neuts (auto) 12.2 H Absolute Nucleated RBC 0.000 Nucleated RBC % 0.0 PT 14.2 INR 1.1 APTT 25.6 Sodium 134 L Potassium 3.9 Chloride 102 Carbon Dioxide 25 Anion Gap 7 BUN 10 Creatinine 0.60 L Estim Creat Clear Calc 204 Estimated GFR > 60 Glucose 107 Lactic Acid 2.1 H Calcium 9.0 Magnesium 1.8 Total Bilirubin 1.0 AST 19 ALT 33 Alkaline Phosphatase 105 Troponin I < 0.012 C-Reactive Protein 4.3 H NT-Pro-B Natriuret Pep < 20 Total Protein 8.6 H Albumin 4.2 Lipase 65 Procalcitonin Urine Color Yellow Urine Appearance Cloudy H Urine pH 8.0 Ur Specific [place] 1.017 Urine Protein Negative Urine Glucose (UA) Negative Urine Ketones Negative Ur Blood (Man) 1+ H Urine Nitrate Negative Urine Bilirubin Negative Urine Urobilinogen 1.0 Leukocyte Esterase Rfl 1+ H Urine RBC 0-2 Urine WBC 11-20 H Ur Squamous Epith Cells Few Urine Bacteria 1+ H Urine Casts 0-2 POC Urine HCG, Qual Negative Influenza A (RT-PCR) Negative Influenza B (RT-PCR) Negative RSV (RT-PCR) Negative SARS-CoV-2 RNA (RT-PCR) Negative 02/06/25 02/07/25 22:39 06:41 WBC 9.6 RBC 4.29 Hgb 11.2 L Hct 35.6 L MCV 83.0 MCH 26.1 MCHC 31.5 L RDW 14.7 H Plt Count 261 MPV 9.4 Immature Gran % (Auto) 0.4 Neut % (Auto) 65.5 Lymph % (Auto) 18.6 [place] % (Auto) 14.7 H Eos % (Auto) 0.5 Baso % (Auto) 0.3 Lymph # (Auto) 1.78 [place] # (Auto) 1.4 H Eos # (Auto) 0.1 Baso # (Auto) 0.0 Abs Immat Gran (auto) 0.04 H Absolute Neuts (auto) 6.3 Absolute Nucleated RBC 0.000 Nucleated RBC % 0.0 PT INR APTT Sodium 136 L Potassium 3.9 Chloride 106 Carbon Dioxide 28 Anion Gap 2 L BUN 9 Creatinine 0.68 L Estim Creat Clear Calc 182 Estimated GFR > 60 Glucose 114 H Lactic Acid 0.7 Calcium 8.5 Magnesium 2.0 Total Bilirubin AST ALT Alkaline Phosphatase Troponin I < 0.012 C-Reactive Protein NT-Pro-B Natriuret Pep Total Protein Albumin Lipase Procalcitonin 0.1 Urine Color Urine Appearance Urine pH Ur Specific [place] Urine Protein Urine Glucose (UA) Urine Ketones Ur Blood (Man) Urine Nitrate Urine Bilirubin Urine Urobilinogen Leukocyte Esterase Rfl Urine RBC Urine WBC Ur Squamous Epith Cells Urine Bacteria Urine Casts POC Urine HCG, Qual Influenza A (RT-PCR) Influenza B (RT-PCR) RSV (RT-PCR) SARS-CoV-2 RNA (RT-PCR) Quality VTE Prophylaxis VTE prophylaxis: pharmacologic ordered
[2025-02-07] MEDS: ACETAMINOPHEN 325 MG TABLET 650 MG PO ×2 (17:28→21:27)
[2025-02-07] MEDS: PANTOPRAZOLE SODIUM IV 40 MG VIAL IV PUSH (21:28)
[2025-02-07] MEDS: cefTRIAXone 1 GM in SODIUM CHLORIDE 0.9% IV 50 ML 100 ML IVPB (21:29)
[2025-02-08] VITALS (8 sets, daily range): BP systolic 125–140; BP diastolic 73–90; PULSE 84–105; RESP 14–20; TEMP 36.3–36.9; O2SAT 98–99
[2025-02-08] MEDS: SODIUM CHLORIDE 0.9% IV 1,000 ML 125 ML IV CONT (04:03)
[2025-02-08 06:37] LABS: Hematocrit 36.5 % (37.0-47.0); Hemoglobin 11.4 g/dL (12.0-15.0); Immature Granulocyte Percent A 0.5 % (0-0.5); Lymphocytes Absolute Auto 1.64 K/mm3 (0.9-3.2); Mean Corpuscular HGB Conc 31.2 g/dl (32-36); Mean Corpuscular Hemoglobin 25.8 pg (26-34); Mean Corpuscular Volume 82.6 fl (80-100); Nucleated Red Blood Cells Absolute Auto 0.000 K/mm3 (0.0-0.012); Nucleated Red Blood Cells Perc 0.0 % (0.0-0.2); Platelet Count Result 274 k/mm3 (150-375); Red Blood Count 4.42 M/mm3 (4.2-5.4); White Blood Count 8.7 K/mm3 (4.5-10.0)
[2025-02-08 06:48] LABS: Anion Gap 4 mmol/L (4-12); Blood Urea Nitrogen 8 mg/dL (7-17); Calcium 8.5 mg/dL (8.4-10.2); Carbon Dioxide 26 mmol/L (22-30); Chloride 106 mmol/L (98-107); Estimated CRCL calculation 217 ml/min; Estimated Glomerular Filt Rate > 60; Glucose 111 mg/dL (65-110); Potassium 3.6 mmol/L (3.4-5.0); Sodium 136 mmol/L (137-145)
[2025-02-08] MEDS: PANTOPRAZOLE SODIUM IV 40 MG VIAL IV PUSH ×2 (08:56→21:59)
--- NOTE | 2025-02-08 14:36 | PM.IMPN2 ---
Assessment and Plan Assessment and Plan (1) Morbid obesity: Code(s): E66.01 - Morbid (severe) obesity due to excess calories Status: Acute (2) UTI (urinary tract infection): Code(s): N39.0 - Urinary tract infection, site not specified Status: Acute (3) Sepsis: Code(s): A41.9 - Sepsis, unspecified organism Status: Acute Plan 29-year-old female with obesity class 3, PCOS presents to [facility] ER on 02/06/2025 with 1-2 days of lower abdominal pain and discomfort with nausea. Denies vomiting, diarrhea. Chest CTA negative for PE, ground-glass opacities bilaterally suggesting pulmonary congestion. 13 mm pulmonary nodule within the right lower lobe. CT abdomen Without acute abnormalities. Admitted with concerns for sepsis with possible UTI 1. Sepsis: ? Secondary to UTI Follow-up urine culture Follow-up blood culture, negative preliminary report Continue with ceftriaxone Leukocytosis has resolved Follow-up for any fever Intermittent abdominal pain which has resolved Continue with PPI 2. Pulmonary nodule: Repeat CT chest needed in 6 weeks 3. Morbid obesity: Will benefit from nutritional consult, outpatient follow-up Weight loss 4. Code status: Full 5. DVT prophylaxis: Heparin subQ 6. Disposition: Pending improvement/urine culture Subjective Date/time seen: 02/08/25 14:36 Interval history: Feeling better No acute events overnight Review of Systems Review of Systems: All systems reviewed & are unremarkable except as noted in HPI and below Exam Const: General: comfortable and no acute distress Other: A&O x3 Eyes: Pupils: Equal, round and reactive pupils present Neck: Neck: supple Resp: Effort & Inspection: normal respiratory effort Auscultation: clear to auscultation bilaterally Cardio: Rhythm: regular rhythm GI: Inspection: non-distended GI Palp: Yes Soft to palpation Extrem: General: no edema Objective Data Vital Signs Vital Signs: Vital Signs - 24 hr 02/07/25 16:00 02/07/25 19:44 02/08/25 00:00 Temperature 97.4 F L Pulse Rate 95 96 94 Respiratory Rate 18 Blood Pressure 148/83 H Pulse Oximetry 97 Oxygen Delivery 02/08/25 04:00 02/08/25 05:06 02/08/25 08:00 Temperature 97.3 F L Pulse Rate 105 H 96 Respiratory Rate 14 Blood Pressure 125/73 Pulse Oximetry 98 Oxygen Delivery Room Air 02/08/25 13:52 Temperature Pulse Rate 98 Respiratory Rate 16 Blood Pressure 131/90 Pulse Oximetry 98 Oxygen Delivery Intake/Output Intake/Output: Intake & Output 02/05/25 02/06/25 02/07/25 02/08/25 23:59 23:59 23:59 23:59 Intake Total 1550 5020 1830 Balance 1550 5020 1830 Meds/Results Medications: Active Medications Generic Name Dose Route Start Last Admin Trade Name Freq PRN Reason Stop Dose Admin Acetaminophen 650 mg 02/06/25 23:53 02/07/25 21:27 Acetaminophen 325 Mg Tablet PO 650 mg Q4H PRN Administration Mild Pain (1-3) or Fever Albuterol/Ipratropium 3 ml 02/07/25 06:32 Ipratropium 0.5 Mg/Albuterol Sulfate 2.5 Mg (Base) Ampul.Neb 3 Ml INHALATION Q6HRT PRN sob Heparin Sodium (Porcine) 5,000 units 02/07/25 14:00 02/08/25 13:27 Heparin Sodium 5,000 Units/Ml Vial SUB-Q 5,000 units Q8HR KATHLEEN Administration Ceftriaxone Sodium 1 gm/ 50 mls @ 100 mls/hr 02/07/25 21:00 02/07/25 21:59 Sodium Chloride IVPB Infused Q24H KATHLEEN Infusion Ondansetron HCl 4 mg 02/06/25 23:53 Ondansetron Inj 4 Mg/2 Ml Vial IV PUSH Q4H PRN Nausea Pantoprazole Sodium 40 mg 02/07/25 21:00 02/08/25 08:56 Pantoprazole Sodium Iv 40 Mg Vial IV PUSH 40 mg Q12HR KATHLEEN Administration Radiology Results: ITS Impressions Chest X-Ray 02/06/25 20:18 IMPRESSION: Groundglass opacity bilaterally suggestive of pulmonary congestion. Abdomen/Pelvis CT 02/06/25 21:12 IMPRESSION: No acute abnormality is noted in the abdomen and pelvis. 1.4 cm nodule at the right lung base could be follow-up with CT in [address] scans at this facility are performed using low dose modulation techniques as appropriate to perform exam including the following: automated exposure control; use of iterative reconstruction technique; adjustment of the mA and/or kV according to patient size (this includes techniques or standardized protocols for targeted exams where dose is matched to indication/reason for exam). Chest CTA 02/06/25 21:55 IMPRESSION: There is no pulmonary embolism, aortic dissection, pericardial fluid or thoracic aneurysm. Groundglass opacity bilaterally suggestive of pulmonary congestion. There is a 13 mm pulmonary nodule within the right lower lobe. This could be follow-up with CT in [address] scans at this facility are performed using low dose modulation techniques as appropriate to perform exam including the following: automated exposure control; use of iterative reconstruction technique; adjustment of the mA and/or kV according to patient size (this includes techniques or standardized protocols for targeted exams where dose is matched to indication/reason for exam). Labs Labs: Laboratory Results - last 24 hr 02/08/25 05:55 WBC 8.7 RBC 4.42 Hgb 11.4 L Hct 36.5 L MCV 82.6 MCH 25.8 L MCHC 31.2 L RDW 14.6 H Plt Count 274 MPV 10.0 Immature Gran % (Auto) 0.5 Neut % (Auto) 66.9 Lymph % (Auto) 18.9 [place] % (Auto) 11.5 H Eos % (Auto) 1.7 Baso % (Auto) 0.5 Lymph # (Auto) 1.64 [place] # (Auto) 1.0 H Eos # (Auto) 0.2 Baso # (Auto) 0.0 Abs Immat Gran (auto) 0.04 H Absolute Neuts (auto) 5.8 Absolute Nucleated RBC 0.000 Nucleated RBC % 0.0 Sodium 136 L Potassium 3.6 Chloride 106 Carbon Dioxide 26 Anion Gap 4 BUN 8 Creatinine 0.56 L Estim Creat Clear Calc 217 Estimated GFR > 60 Glucose 111 H Calcium 8.5 Quality VTE Prophylaxis VTE prophylaxis: pharmacologic ordered
[2025-02-08] MEDS: cefTRIAXone 1 GM in SODIUM CHLORIDE 0.9% IV 50 ML 100 ML IVPB (21:59)
[2025-02-09] VITALS: PULSE 90
[2025-02-09 04:00] VITALS: PULSE 100
[2025-02-09 06:00] VITALS: BP 134/88; PULSE 97; RESP 20; TEMP 36.5; O2SAT 98
[2025-02-09 08:00] VITALS: PULSE 90
[2025-02-09] MEDS: PANTOPRAZOLE SODIUM IV 40 MG VIAL IV PUSH (08:55)
--- NOTE | 2025-02-09 08:59 | PM.DS ---
DS: Admitting Diagnosis Discharge Date 02/09/25 Admitting Diagnosis possible Sepsis DS: Discharge Diagnosis Discharge Diagnosis (1) Sepsis: Code(s): A41.9 - Sepsis, unspecified organism Status: Acute (2) UTI (urinary tract infection): Code(s): N39.0 - Urinary tract infection, site not specified Status: Acute DS: Summary Hospital Course Reason for hospitalization: Abdominal Pain Possible UTI Hospital Course: 29-year-old female with obesity class 3, PCOS presents to [facility] ER on 02/06/2025 with 1-2 days of lower abdominal pain and discomfort with nausea. Denies vomiting, diarrhea. Chest CTA negative for PE, ground-glass opacities bilaterally suggesting pulmonary congestion. 13 mm pulmonary nodule within the right lower lobe. CT abdomen Without acute abnormalities. Admitted with concerns for sepsis with possible UTI. Was started on IV fluids, ceftriaxone. Leukocytosis resolved very quickly. Blood cultures remain negative. Urine culture turned out to be negative. Patient was treated with ceftriaxone while in the hospital, was not discharged on any antibiotic. Very low probability of sepsis/UTI. Patient clinically improved. Tolerating diet. Patient is being discharged home in stable condition Status at Discharge Functional status at discharge: independent ambulation Overall status at discharge: patient is back to baseline Time Spent with Patient Time attestation: Total time spent providing and/or coordinating discharge services:33 mins Exam Narrative: CONST: No acute distress. morbid obesity. HENMT: Head is normocephalic and atraumatic. tacky mucous membranes. No posterior oropharynx erythema. EYES: No scleral icterus. No conjunctival injection or pallor. PERRL. NECK: No meningeal signs. RESP: Normal respiratory effort. CTAB. CARDIO: Regular rhythm. 2+ DP and radial pulses bilaterally. GI: Nondistended. Soft, nontender : No CVA tenderness to palpation. SKIN: No rashes or lesions noted on exposed skin. NEURO: Oriented x3. Moves all extremities. EXTREM/MSK/BACK: No pedal edema. PSYCH: Normal affect. DS: Data Data Completed and Pending Labs on day of discharge: Preliminary micro results at discharge 02/06/25 20:17 Blood Culture - Preliminary Blood 02/06/25 20:10 Blood Culture - Preliminary Blood Discharge Plan Discharge Attending physician on discharge: Cherelle Maloney Discharging Clinician: Cherelle Maloney Patient Disposition: Home Activity: as tolerated Diet: regular Patient Instructions: Antibiotic Form Patient Language: Micronesian Stand Alone Forms: General Discharge Information, Work/School Release IP Follow-up/Referrals: UNKNOWN,DOCTOR [Primary Care Provider] - 2 Weeks Discharge Medications: No Action No Home Medications Date of admission: 02/06/25 23:54 Primary Care Provider: UNKNOWN,DOCTOR Admitting Provider: Karla Yost Attending physician on admission: Karla Yost Condition: Serious
== END 2025-02-09 12:15 | disposition home or self-care (01) ==
LOC: ANHED 23:55 → ANH3MED 02-07 16:12
PROVIDERS: Emergency Medicine; Physician Assistant; Admitting Provider General Practice; Emergency Provider Student in an Organized Health Care Education/Training Program; Visit Provider Internal Medicine
DX: R82.90 Unspecified abnormal findings in urine (principal); R91.1 Solitary pulmonary nodule; R91.8 Other nonspecific abnormal finding of lung field; E28.2 Polycystic ovarian syndrome; N94.89 Other specified conditions associated with female genital organs and menstrual cycle; F12.90 Cannabis use, unspecified, uncomplicated; E66.813 Obesity, class 3; Z68.45 Body mass index [BMI] 70 or greater, adult; Z20.822 Contact with and (suspected) exposure to COVID-19; Z83.3 Family history of diabetes mellitus
CPT/HCPCS: 36415; 71045; 71275; 74177; 80048; 80053; 81001; 81025; 83605; 83690; 83735; 83880; 84145; 84484; 85025; 85610; 85730; 86140; 87040; 87086; 87637; 93005; 94640; 96361; 96365; 96367; 96374; 96375; 96376; 99285; A9270; G0378; J0456; J0696; J1644; J1885; J2405; J2470; J7030; J7040; J7050; Q9967